=== PATIENT | male | born 1950 | race Caucasian/White ===

== ENCOUNTER 2021-05-17 15:45 | Outpatient (REF) | payer MEDICARE, OTHER, SELFPAY ==
--- NOTE | ~2021-05-17 | XR_ITS ---
EXAMINATION: XR CHEST CLINICAL INFORMATION: Chronic cough COMPARISON: None TECHNIQUE: 2 views of the chest were obtained. FINDINGS: The cardiac and mediastinal contours are normal. The lungs are clear. There is no pleural effusion or pneumothorax. There are degenerative changes of the spine. XR/XR chest 2V IMPRESSION: No evidence for acute disease in the chest.
== END 2021-05-17 15:46 | disposition home or self-care (01) ==
LOC: HO.XRAY 15:45
PROVIDERS: PCP Internal Medicine; Visit Provider Physician Assistant
DX: R05.3 Chronic cough (principal)
CPT/HCPCS: 71046

== ENCOUNTER 2021-06-25 13:58 | Outpatient (REF) | payer MEDICARE, OTHER, SELFPAY ==
--- NOTE | ~2021-06-25 | CT_ITS ---
EXAMINATION: CT CHEST WITHOUT CONTRAST CLINICAL INFORMATION: Chronic cough. COMPARISON: None TECHNIQUE: Multidetector volumetric CT imaging of the chest was done. Axial MIP volume rendering provided. Sagittal and coronal reformatted images were obtained. This CT examination was performed using dose optimization techniques as appropriate, variously including the following: *Automated exposure control *Adjustment of mA and/or kV according to patient size (this includes techniques or standardized protocols for targeted exams where dose is matched to indication/reason for exam; i.e. extremities or head) *Use of iterative reconstruction technique DLP: 194 mGy-cm FINDINGS: SENIOR ENERGY ANALYST: Unremarkable. LUNGS: The lungs are well inflated with focal patchy opacity left upper lobe consistent of bronchiectasis and reticular thickening approximately measuring 4.5 x 1.6 cm on axial image 38/10. Rest of lungs are well-expanded without any evidence of consolidation, mass, pulmonary nodule or groundglass density. MEDIASTINUM: The thyroid lobes are symmetrical and normal. The central trachea and the bronchi are widely patent. Heart size and the great vessels are normal caliber. There are small shotty pretracheal and subcarinal lymph nodes. Moderate coronary artery calcifications present. There is no pericardial effusion. PLEURA: Small focal pleural calcifications seen in the right lung on axial image 17/8, 14/8 and left lung image 54/10. AXILLA: No abnormal lymph nodes in the axilla. The chest wall is unremarkable. UPPER ABDOMEN: Visualized liver, spleen and bilateral adrenal glands unremarkable. There is dense calcification at the tail of the pancreas likely old inflammatory changes. The head and the body of the pancreas is unremarkable. No radiopaque gallstone seen. There is diffuse colonic diverticulosis. OSSEOUS STRUCTURES: There is moderate ventral spondylosis mid and lower dorsal spine. No lytic or sclerotic process seen. CT/CT chest wo con IMPRESSION: Focal bronchiectasis with reticular thickening left upper lobe from small airway inflammatory changes likely chronic. There is no acute consolidation, mass or nodule seen. No abnormal mediastinal or axillary lymphadenopathy seen. Punctate pleural calcification seen in both lungs likely from previous asbestosis exposure. Fleischner guidelines were followed.
== END 2021-06-25 13:59 | disposition home or self-care (01) ==
LOC: HO.CT 13:58
PROVIDERS: PCP Internal Medicine; Visit Provider Physician Assistant
DX: R05.3 Chronic cough (principal)
CPT/HCPCS: 71250

== ENCOUNTER 2022-01-10 14:33 | Outpatient (REF) | payer MEDICARE, OTHER, SELFPAY ==
[2022-01-10 17:50] LABS: MANUAL DIFF FLAG NO
[2022-01-10 17:57] LABS: Basophils Percent Auto 0.6 % (0-2); Eosinophils Absolute Auto 0.1 X10*3/uL (0.0-0.4); Eosinophils Percent Auto 2.6 % (0-4); Hematocrit 40.4 % (42.0-52.0); Hemoglobin 13.8 g/dl (14.0-18.0); Imm Gran Abs Auto 0.01 X10*3/uL (0.00-0.03); Imm Gran Pct Auto 0.2 % (0.0-0.4); Lymphocytes Absolute Auto 1.6 X10*3/uL (1.2-4.9); Lymphocytes Percent Auto 29.5 % (20-40); Mean Corpuscular HGB Conc 34.2 g/dl (31.0-36.0); Mean Corpuscular Hemoglobin 33.6 pg (27.0-33.0); Mean Corpuscular Volume 98.3 fL (80.0-98.0); Mean Platelet Volume 10.8 fL (9.4-12.4); Monocytes Absolute Auto 0.5 X10*3/uL (0.1-1.2); Monocytes Percent Auto 9.8 % (2-11); Neutrophils Absolute Auto 3.1 x10*3/uL (2.0-8.3); Neutrophils Percent Auto 57.3 % (45-73); Platelet Count 208 X10*3/uL (160-400); Red Blood Count 4.11 X10*6/uL (4.60-5.80); Red Cell Distribution Width 12.8 % (11.0-16.0); White Blood Count 5.4 X10*3/uL (4.8-10.8)
[2022-01-10 18:06] LABS: Estimated Average Glucose 100 mg/dL; Hemoglobin A1c % 5.1 %
[2022-01-10 18:08] LABS: Alanine Aminotransferase 23 U/L (0-40); Albumin Level 4.3 g/dL (3.5-5.0); Alkaline Phosphatase 94 U/L (39-117); Anion Gap 15 (12-20); Aspartate Amino Transferase 24 U/L (5-37); Bilirubin Total 0.8 mg/dL (0.0-1.0); Blood Urea Nitrogen 11 mg/dL (9-16); Calcium 9.4 mg/dL (8.4-10.2); Carbon Dioxide 26 mmol/L (22-29); Chloride 103 mmol/L (96-108); Cholesterol 167 mg/dL; Estimated Glomerular Filt Rate > 60; Glucose Random 85 mg/dL (60-115); HDL Cholesterol 64 mg/dL; LDL Cholesterol Calculated 86 mg/dl; Potassium 3.9 mmol/L (3.3-5.1); Sodium 140 mmol/L (135-145); Total Protein 7.1 g/dL (6.5-8.0); Triglycerides 86 mg/dL
[2022-01-10 18:29] LABS: Prostate Specific Antigen 0.19 ng/mL (<0.05-4.0)
== END 2022-01-10 14:34 | disposition home or self-care (01) ==
LOC: HO.MANLDS 14:33
PROVIDERS: Visit Provider Internal Medicine
DX: I10 Essential (primary) hypertension (principal); Z12.5 Encounter for screening for malignant neoplasm of prostate
CPT/HCPCS: 36415; 80053; 80061; 83036; 84153; 85025

== ENCOUNTER 2022-07-05 09:58 | Outpatient (REF) | payer MEDICARE, OTHER, SELFPAY ==
[2022-07-05 11:54] LABS: Basophils Percent Auto 0.6 % (0-2); Eosinophils Absolute Auto 0.2 X10*3/uL (0.0-0.4); Eosinophils Percent Auto 4.2 % (0-4); Hematocrit 39.3 % (42.0-52.0); Hemoglobin 13.5 g/dl (14.0-18.0); Imm Gran Abs Auto 0.01 X10*3/uL (0.00-0.03); Imm Gran Pct Auto 0.2 % (0.0-0.4); Lymphocytes Absolute Auto 1.6 X10*3/uL (1.2-4.9); Lymphocytes Percent Auto 33.1 % (20-40); MANUAL DIFF FLAG SCAN; Mean Corpuscular HGB Conc 34.4 g/dl (31.0-36.0); Mean Corpuscular Hemoglobin 33.3 pg (27.0-33.0); Monocytes Absolute Auto 0.6 X10*3/uL (0.1-1.2); Monocytes Percent Auto 12.9 % (2-11); Neutrophils Absolute Auto 2.4 x10*3/uL (2.0-8.3); PLT CLUMP 1; Red Blood Count 4.05 X10*6/uL (4.60-5.80); Red Cell Distribution Width 12.4 % (11.0-16.0); SCAN SMEAR FLAG 1
[2022-07-05 12:11] LABS: Estimated Average Glucose 108 mg/dL; Hemoglobin A1c % 5.4 %
[2022-07-05 12:35] LABS: White Blood Count 4.8 X10*3/uL (4.8-10.8)
[2022-07-05 12:36] LABS: SLIDE REVIEW VERIFIED
[2022-07-05 13:01] LABS: Alanine Aminotransferase 37 U/L (0-40); Albumin Level 3.7 g/dL (3.5-5.0); Alkaline Phosphatase 87 U/L (39-117); Anion Gap 10 (12-20); Aspartate Amino Transferase 39 U/L (5-37); Bilirubin Total 0.7 mg/dL (0.0-1.0); Blood Urea Nitrogen 13 mg/dL (9-16); Calcium 8.9 mg/dL (8.4-10.2); Carbon Dioxide 29 mmol/L (22-29); Chloride 104 mmol/L (96-108); Cholesterol 109 mg/dL; Estimated Glomerular Filt Rate > 60; Glucose Random 96 mg/dL (60-115); HDL Cholesterol 36 mg/dL; LDL Cholesterol Calculated 49 mg/dl; Potassium 4.4 mmol/L (3.3-5.1); Sodium 139 mmol/L (135-145); Total Protein 6.9 g/dL (6.5-8.0); Triglycerides 122 mg/dL
[2022-07-05 13:03] LABS: Prostate Specific Antigen 0.23 ng/mL (<0.05-4.0)
== END 2022-07-05 09:59 | disposition home or self-care (01) ==
LOC: HO.MANLDS 09:58
PROVIDERS: Visit Provider Internal Medicine
DX: I10 Essential (primary) hypertension (principal); Z12.5 Encounter for screening for malignant neoplasm of prostate; R73.01 Impaired fasting glucose
CPT/HCPCS: 36415; 80053; 80061; 83036; 84153; 85025

== ENCOUNTER 2022-07-06 14:04 | Outpatient (REF) | payer MEDICARE, OTHER, SELFPAY ==
[2022-07-14 10:04] LABS: Babesia IgG <1:64 titer (<1:64); Babesia IgM <1:20 titer (<1:20)
[2022-07-14 13:08] LABS: A. Phagocytophilum Ab IgG <1:64 (<1:64); A. Phagocytophilum Ab IgM <1:20 (<1:20); E. Chaffeensis Ab IgG <1:64 (<1:64); E. Chaffeensis Ab IgM <1:20 (<1:20)
== END 2022-07-06 14:05 | disposition home or self-care (01) ==
LOC: HO.MANLDS 14:04
PROVIDERS: Visit Provider Internal Medicine
DX: S00.9 Superficial injury of unspecified part of head (principal); W57.XXXD Bitten or stung by nonvenomous insect and other nonvenomous arthropods, subsequent encounter
CPT/HCPCS: 86666; 86753

== ENCOUNTER 2023-01-13 09:30 | Outpatient (REF) | payer MEDICARE, OTHER, SELFPAY ==
[2023-01-13 16:14] LABS: Estimated Average Glucose 91 mg/dL; Hemoglobin A1c % 4.8 % (<6.0)
== END 2023-01-13 09:31 | disposition home or self-care (01) ==
LOC: HO.MANLDS 09:30
PROVIDERS: Visit Provider Internal Medicine
DX: E11.9 Type 2 diabetes mellitus without complications (principal)
CPT/HCPCS: 36415; 83036

== ENCOUNTER 2023-03-22 16:06 | Outpatient (REF) | payer MEDICARE, OTHER, SELFPAY ==
--- NOTE | ~2023-03-22 | XR_ITS ---
EXAMINATION: XR CHEST CLINICAL INFORMATION: Cough COMPARISON: Chest 05/17/2021 TECHNIQUE: 2 views of the chest were obtained. FINDINGS: No significant abnormality is noted involving the heart, lungs, mediastinum or soft tissues. Multilevel degenerative changes involve the thoracic spine. XR/XR chest 2V IMPRESSION: No acute cardiopulmonary disease.
== END 2023-03-22 16:07 | disposition home or self-care (01) ==
LOC: HO.XRAY 16:06
PROVIDERS: PCP Internal Medicine; Visit Provider Internal Medicine
DX: R05.9 Cough, unspecified (principal)
CPT/HCPCS: 71046

== ENCOUNTER 2023-08-28 09:27 | Outpatient (REF) | payer MEDICARE, OTHER, SELFPAY ==
[2023-08-28 14:04] LABS: Estimated Average Glucose 103 mg/dL; Hemoglobin A1c % 5.2 % (<6.0)
== END 2023-08-28 09:28 | disposition home or self-care (01) ==
LOC: HO.MANLDS 09:27
PROVIDERS: Visit Provider Internal Medicine
DX: E11.9 Type 2 diabetes mellitus without complications (principal)
CPT/HCPCS: 36415; 83036

== ENCOUNTER 2024-05-24 15:30 | Outpatient (REF) | payer MEDICARE, OTHER, SELFPAY ==
--- NOTE | ~2024-05-24 | XR_ITS ---
EXAMINATION: XR CHEST CLINICAL INFORMATION: pneumonia COMPARISON: March 22, 2023. TECHNIQUE: 2 views of the chest were obtained. FINDINGS: No consolidation, pleural effusion or pneumothorax. Cardiomediastinal silhouette size is normal. Multilevel moderate to severe thoracolumbar spondylosis. Degenerative changes in the right shoulder. XR/XR chest 2V IMPRESSION: No acute airspace disease. Spondylosis, thoracolumbar spine. Electronically signed by: Daniel Daniel MD 05/24/2024 03:57 PM EDT
== END 2024-05-24 15:31 | disposition home or self-care (01) ==
LOC: HO.XRAY 15:30
PROVIDERS: PCP Internal Medicine; Visit Provider Physician Assistant
DX: J18.9 Pneumonia, unspecified organism (principal)
CPT/HCPCS: 71046

== ENCOUNTER → 2024-05-24 15:42 | Outpatient (BNV) | payer MEDICARE, OTHER, SELFPAY | PROVIDERS: PCP Internal Medicine; Visit Provider Radiology Diagnostic Radiology | DX: J18.9 Pneumonia, unspecified organism (principal) | CPT/HCPCS: 71046 ==

== ENCOUNTER 2024-09-14 19:28 | Outpatient (REF) | payer MEDICARE, OTHER, SELFPAY ==
--- NOTE | ~2024-09-14 | MR_ITS ---
CLINICAL HISTORY: sclerotic lesion of prox tibial metaphysis MR right knee with and without contrast Comparison: None available Findings: There is a tear of the posterior horn and posterior root of the medial meniscus. There is a tear of anterior root, anterior horn and anterior aspect of the body of the lateral meniscus. Tear of the anterior cruciate ligament. The posterior cruciate ligament is increased in size and signal without complete discontinuity. The medial and lateral collateral ligaments are intact. There is edema in the posterolateral corner. The extensor mechanism is intact. Mild amount of increased signal in the patellar tendon at its insertion upon the tibial tuberosity. Moderate-sized joint effusion with protrusion posteriorly at the lateral aspect. There is synovial thickening and enhancement. There are intra-articular fragments. Large Goncalves's cys measuring 2.5 x 2.6 x 7.7 cm which contains debris/intra-articular fragments. There is edema within the subcutaneous fat. There is increased signal within the medial gastrocnemius tendon at its insertion. There is also increased signal within the adjacent gastrocnemius muscle on the T2 weighted images with enhancement on the postcontrast images. There is a lesion in the proximal tibial metaphysis measuring 2.0 x 1.6 x 1.8 cm. There is an irregular well-defined margin. It is within the medullary cavity. It is decreased in signal on the T1 weighted images. There is increased signal centrally on the T2 weighted images with peripheral decreased signal. On the postcontrast images there is peripheral enhancement. There is bone marrow edema and enhancement within the distal femur which is most prominent in the lateral femoral condyle and within the medial and lateral tibial plateaus, greatest along the lateral tibial plateau. There is [id number] tricompartmental osteophytosis. Focal full-thickness chondromalacia in the patellofemoral compartment measures up to 7 mm along lateral patellar facet. Full-thickness chondromalacia in medial tibiofemoral compartment measures up to 2.3 cm along the medial femoral condyle. There is full-thickness chondromalacia in the lateral tibiofemoral compartment measuring up to 9 mm along the lateral tibial plateau. Impression: Lesion in the proximal tibial metaphysis measuring up to 2.0 cm is favored to be a bone infarction. If the prior radiographs are submitted for review an addendum can be provided. Consider follow up radiographs to document stability. Tear of the menisci . Complete tear of the anterior cruciate ligament. Edema in the posterolateral corner. The posterior cruciate ligament is increased in size and signal without complete discontinuity which may indicate partial tear. Mild patellar tendinopathy. Moderate-sized joint effusion with synovitis and intra-articular fragments. Large Goncalves's cyst with synovitis and debris/intra-articular fragments. Partial tear of the medial gastrocnemius tendon with associated myositis/tear of the myotendinous junction. Bone marrow edema in the distal femur and proximal tibia, degenerative. [id number] tricompartmental osteophytosis. Tricompartmental full-thickness chondromalacia, detailed above. This document has been electronically signed by: Usha Rojas MD on 09/17/2024 17:30:28
--- OUTSIDE RECORDS SUMMARY | 2024-09-14 19:30 | XMS_ITS | Clinical Summary ---
Author Organization [facility] Address [address] [place] [id number] Phone Care Team Providers Care Meter Repairer Name Role Phone Travis Alvarenga DO Unavailable Bill Perkins MD Unavailable [email or web address] Travis Alvarenga DO Primary Care Provider [phone] Allergies Active Allergy Reactions Criticality Noted Date Comments Adhesive Tape-Silicones 08/09/2018 Other 05/15/2017 Plastic Band-Aid cause rash Medications felodipine (PLENDIL) 2.5 MG 24 hr tablet Take 1 tablet by mouth daily. Active allopurinol (ZYLOPRIM) 300 MG tablet Take 1 tablet by mouth daily. Active fluocinonide 0.05 % cream as needed. 02/09/20 10 Active montelukast (SINGULAIR) 10 mg tablet Take 1 tablet by mouth daily. Active albuterol (PROAIR HFA) 90 mcg/actuation inhaler Inhale 2 puffs into the lungs every 4 (four) hours as needed. 02/11/20 10 Active SUMAtriptan (IMITREX) 100 MG tablet 100 mg daily as needed. Active therapeutic multivitamin tablet Take 1 tablet by mouth daily. With Vitamin D (1000 units) Active albuterol (ACCUNEB) 0.63 mg/3 mL nebulizer solution albuterol sulfate 0.63 mg/3 mL solution for nebulization INHALE 2.5 MG EVERY 3-4 HOURS BY INHALATION ROUTE NEEDED FOR 7 DAYS. Active traMADoL (ULTRAM) 50 mg tablet Take 1 tablet by mouth 2 (two) times a day. 06/14/19 Active tamsulosin (FLOMAX) 0.4 mg Cap tamsulosin 0.4 mg capsule TAKE 1 CAPSULE BY MOUTH EVERY DAY Active guaiFENesin-code ine (ROBITUSSIN AC) 100-10 mg/5 mL liquid TAKE 10 ML NEEDED BY ORAL ROUTE AT BEDTIME FOR 7 DAYS. Active TRELEGY ELLIPTA 200-62.5-25 mcg inhaler Inhale 1 puff into the lungs daily. 08/23/19 Active fluticasone propion-salmeter oL (ADVAIR DISKUS) 500-50 mcg/dose DISKUS Advair Diskus 500 mcg-50 mcg/dose powder for inhalation INHALE 1 PUFF TWICE A DAY BY INHALATION ROUTE FOR 30 DAYS. Discontin ued(No longer taking) atorvastatin (LIPITOR) 40 MG tablet Take 1 tablet by mouth daily. 025 Discontin ued(No longer taking) budesonide-formo terol 160-4.5 mcg/actuation inhaler TAKE 1 PUFF BY MOUTH TWICE A DAY 025 Discontin ued(No longer taking) Active Problems Problem Noted Date Diagnosed Date Overweight (BMI 25.0-29.9) 09/02/2024 Assessment & Plan (09/02/2024 2:48 PM EDT): Congrats on losing 6 llbs from 189 on 03/06/2024 down to 183 today & keep it off. Portion control. Limit concentrated sugars, saturated fats and calories in the diet. Keep well-hydrated. If unable to achieve expected goal consider formal dietary/nutritional support. Strain of right knee 08/19/2024 On allopurinol therapy 03/06/2024 Assessment & Plan (09/02/2024 2:46 PM EDT): Continue as prescribed. Monitor for abd. Pain, nausea, skin rashes, unusual fatigue etc. Get monitoring labs on the way out of the office & in 6 mths- orders [facility]. Assessment & Plan (03/06/2024 1:26 PM EST): Continue as prescribed. Monitor for abd. Pain, nausea, skin rashes, unusual fatigue etc. Get monitoring labs on the way out of the office & in 6 mths- orders [facility]. Primary osteoarthritis involving multiple joints 03/27/2023 Assessment & Plan (09/02/2024 2:46 PM EDT): Joint protection, energy conservation. Gentle, regular exercise routine. Avoid falls, injuries, overuse. Keep body weight in ideal range for his height. He may benefit from topical cream such as Arnica, Biofreeze, Aspercreme versus medicated patches such as salonpas, icy hot patch 2-3 times daily and if necessary at bedtime x 3 weeks. Assessment & Plan (03/06/2024 1:23 PM EST): Joint protection, energy conservation. Gentle, regular exercise routine. Avoid falls, injuries, overuse. Keep body weight in ideal range for his height. He may benefit from topical cream such as Arnica, Biofreeze, Aspercreme versus medicated patches such as salonpas, icy hot patch 2-3 times daily and if necessary at bedtime x 3 weeks. On his request I have agreed to IM Kenalog injection that worked wonderfully since June 2023. Procedure: After an informed written consent, under sterile conditions using Ethyl chloride spray for local anesthesia I have injected 60 mg Kenalog into Left deltoid muscle uneventfully. Details of post-procedure care were explained to the patient in the office and given in writing. Provider: Sara Casey MD Patient: Nicolas Smiley : 1950 Date: 03/06/2024 Assessment & Plan (06/28/2023 9:39 AM EDT): Degenerative osteoarthritis in multiple joints with no swelling. He has pain over multiple CMC joints as well as cervical and lumbar spine pain. I gave her an intramuscular injection of triamcinolone 60 mg to relieve his pain and stiffness, which should last him several months. Continue with Tylenol and tramadol as needed. Assessment & Plan (03/27/2023 1:52 PM EST): Osteoarthritis in multiple joints with minimal stiffness and no swelling. The ring finger triggers resolved after injection at last visit. He can continue with Tylenol and tramadol as needed. He can return to rheumatology if the triggering recurs. Encounter for medication monitoring 10/13/2022 Assessment & Plan (10/13/2022 3:22 PM EDT): Surveillance labs to be checked Trigger ring finger of left hand 10/13/2022 Assessment & Plan (10/13/2022 3:24 PM EDT): Trigger finger of left hand injected with triamcinolone 30 mg. Arthritis of finger of right hand 10/18/2021 Assessment & Plan (10/18/2021 11:01 AM EDT): Procedure: After an informed oral consent, under sterile conditions using Ethyl chloride spray for local anesthesia I have injected 20 mg DepoMedrol and 0.5 cc 1% Lidocaine into Right 3rd MCP joint uneventfully. Details of post-procedure care were explained to the patient in the office and given in writing. Provider: Sara Casey MD Patient: Nicolas Smiley : 1950 Date: 10/18/2021 Vitamin D insufficiency 10/18/2021 Assessment & Plan (10/18/2021 11:04 AM EDT): Re-start vit 1000 units every other day from 11/11/2021 till 05/27/2022 Idiopathic chronic gout of multiple sites alfredo fagan 10/12/2021 Overview (10/12/2021): Gout controlled on Allopurinol 300 mg daily Uric acid low normal Will repeat labs today, consider reducing dose of allopurinol Assessment & Plan (09/02/2024 2:55 PM EDT): Clinically stable-no gouty attack for several years per his report on current allopurinol 300 mg daily New set of lab work requested today. Continue proper hydration and low purine diet. Call if problems or questions otherwise return as scheduled in 6 mths Assessment & Plan (03/06/2024 1:24 PM EST): Uric acid 3.2 (<6.0) from 10/12/2021 on daily allopurinol 300 mg & no gouty attacks per his report > 5 years-decrease allopurinol from 300 mg daily to alternating with 150 mg every other day. Continue proper hydration and low purine diet. Call if problems or questions otherwise return as scheduled in 6 mths Assessment & Plan (03/27/2023 1:52 PM EST): Chronic gout well-controlled on allopurinol 300 mg daily. His last uric acid was 2.8. Continue with same dose of allopurinol. Assessment & Plan (10/13/2022 3:23 PM EDT): Gout well-controlled on daily allopurinol 300 mg. Assessment & Plan (11/09/2021 1:48 PM EDT): Uric acid 3.2 (<6.0) from 10/12/2021 on daily allopurinol 300 mg & no gouty attacks per his report > 5 years-decrease allopurinol from 300 mg daily to alternating with 150 mg every other day. Continue proper hydration and low purine diet. Call if problems or questions otherwise return as scheduled in March 2022 Assessment & Plan (10/12/2021 9:41 AM EDT): Gout controlled on Allopurinol 300 mg daily Uric acid low normal Will repeat labs today, consider reducing dose of allopurinol High serum calcium 10/12/2021 Overview (10/12/2021): High Calcium level on labs in 06/18, most likely from taking extra Tums but will check vit D and PTH/ Pt to avoid extra Calcium supplementation Assessment & Plan (10/12/2021 9:43 AM EDT): High Calcium level on labs in 06/18, most likely from taking extra Tums but will check vit D and PTH/ Pt to avoid extra Calcium supplementation Acquired trigger finger of right middle finger 0 09/28/2020 Assessment & Plan (09/28/2020 2:18 PM EDT): Acute flareup secondary to osteoarthritis of the third MCP joint will be treated with relative rest, continuance of Naprosyn 500 g daily as needed and local injection today into the right third trigger finger. Spinal enthesopathy of cervical region Assessment & Plan (03/10/2020 2:43 PM EST): Acute left-sided flare without radiculopathy or myelopathy will be treated with local injection therapy today followed by cervical pillow relative rest and contrast baths. He will continue naproxen sodium as needed. Low back pain 09/09/2019 Assessment & Plan (09/09/2019 3:28 PM EDT): This is likely overuse but he may have some osteoarthritis in the facet joints. Certainly there are no signs of neurogenic claudication or radiculopathy. He will use warmth, good techniques at lifting, naproxen and a sacral support brace. Left knee pain 08/09/2018 Assessment & Plan (08/09/2018 10:26 AM EDT): Acute left knee pain now resolving. No evidence of synovitis or instability. Plical syndrome, meniscal contusion, small meniscal tear all possible. Obtain x-rays today. Get back to him by phone call. Monitor activity and symptoms and if worse then MRI to rule out internal derangement. Asthma 10/26/2017 Rotator cuff impingement syndrome 05/15/2017 Assessment & Plan (05/15/2017 2:43 PM EDT): After surgical repair he is now asymptomatic without impingement. He is sleeping well. He has no difficulty with ADLs or doing any hard work over his head. His exam today is normal. Hyperlipidemia 05/15/2017 Assessment & Plan (05/15/2017 2:45 PM EDT): Patient is now on 40 mg of simvastatin a day. He denies any myalgias or muscle cramps. 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 He has had no acute cardiovascular events. We discussed the risks and benefits of long-term use of simvastatin. He will follow directions as laid out to him by his primary care physician. Laboratory was reviewed from February showing a C-reactive protein of 0.1 with a uric acid of 3.4 and normal liver enzymes. Idiopathic chronic gout of right hand 01/11/2017 Assessment & Plan (06/24/2020 2:10 PM EDT): Patient has a history of stable gout on allopurinol 300 mg daily with uric acid levels in the serum being in the target range below 6.0 and no recent flares of gout. His osteoarthritic pain will continue to be treated with tramadol on an as- needed basis. We will continue with 300 mg of allopurinol daily. His most recent laboratory work was checked. No visits with results within 3 Month(s) from this visit. Latest known visit with results is: Hospital Outpatient Visit on 11/07/2019 Component Date Value Ref Range Status PSA 11/07/2019 0.40 0 - 4.00 ng/mL Final HDL 11/07/2019 55 mg/dL Final Comment: Interpretation <40 mg/dL: Low HDL cholesterol (major risk factor for CHD) Greater than or equal to 60 mg/dL: High HDL cholesterol ( negative risk factor for CHD) HDL - cholesterol is affected by a number of factors, e.g. smoking, excerise, hormones, sex and age. CHOLESTEROL 11/07/2019 128 0 - 240 mg/dL Final TRIGLYCERIDES 11/07/2019 100 30 - 160 mg/dL Final LDL 11/07/2019 53 50 - 129 mg/dL Final Comment: LDL levels in terms of risk for coronary heart disease: <100 mg/dL: Optimal 100-129 mg/dL: Near or above optimal 130-159 mg/dL: Borderline high 160-189 mg/dL: High >190 mg/dL: Very High CARDIAC RISK RATIO 11/07/2019 2.3* 3.4 - 5.0 Final WBC 11/07/2019 4.88 4.00 - 11.00 K/uL Final Note Reference Range updates to all CBC and Differential results. RBC 11/07/2019 4.05 3.90 - 5.69 M/uL Final HGB 11/07/2019 13.6 12.4 - 17.3 g/dL Final Note updated Reference Ranges for all CBC and Differential results. HCT 11/07/2019 38.3 37.0 - 51.0 % Final PLT 11/07/2019 189 140 - 430 K/uL Final MCV 11/07/2019 94.6 78.0 - 97.0 fL Final MCH 11/07/2019 33.6* 25.0 - 33.0 pg Final MCHC 11/07/2019 35.5 32.0 - 36.0 g/dL Final RDW 11/07/2019 12.6 11.0 - 15.0 % Final MPV 11/07/2019 10.8 8.4 - 12.8 fl Final NRBC 11/07/2019 0.00 0 /100 WBCs Final ABSOLUTE NRBC 11/07/2019 0.00 0 K/uL Final SODIUM 11/07/2019 141 133 - 146 mmol/L Final POTASSIUM 11/07/2019 4.2 3.3 - 5.1 mmol/L Final CHLORIDE 11/07/2019 105 96 - 108 mmol/L Final CO2 11/07/2019 25 21 - 35 mmol/L Final BUN 11/07/2019 11 6 - 19 mg/dL Final CREATININE 11/07/2019 0.70 0.5 - 1.5 mg/dL Final GLUCOSE 11/07/2019 97 70 - 99 mg/dL Final ALBUMIN 11/07/2019 4.3 3.9 - 4.8 g/dL Final TOTAL PROTEIN 11/07/2019 7.0 6.5 - 8.0 g/dL Final CALCIUM 11/07/2019 9.0 8.4 - 10.3 mg/dL Final ALKALINE PHOSPHATASE 11/07/2019 85 39 - 117 U/L Final TOTAL BILIRUBIN 11/07/2019 0.4 0.0 - 1.2 mg/dL Final AST 11/07/2019 30 0 - 37 U/L Final ALT 11/07/2019 23 0 - 40 U/L Final GLOBULIN 11/07/2019 2.7 1 - 4.8 g/dL Final EGFR 11/07/2019 98 >59 mL/min/1.73m2 Final Estimated glomerular filtration rate calculated using the CKD-EPI equation. ANION GAP 11/07/2019 15 10 - 20 mmol/L Final 25 OH VIT D (TOTAL) 11/07/2019 35 30 - 60 ng/mL Final HEMOGLOBIN A1C 11/07/2019 5.6 4.3 - 5.8 % Final Assessment & Plan (03/10/2020 2:44 PM EST): Gouty arthritis particular involving the right third MCP joint we have treated with enlarged strap cutter and tools and utensils, continued use of allopurinol, continued use of naproxen 500 g daily as needed an intra-articular corticosteroid today. Continue allopurinol at current dose. He has been within the target range of uric acid for quite some time now. No evidence of nephrolithiasis. No visits with results within 3 Month(s) from this visit. Latest known visit with results is: Hospital Outpatient Visit on 11/07/2019 Component Date Value Ref Range Status PSA 11/07/2019 0.40 0 - 4.00 ng/mL Final HDL 11/07/2019 55 mg/dL Final Comment: Interpretation <40 mg/dL: Low HDL cholesterol (major risk factor for CHD) Greater than or equal to 60 mg/dL: High HDL cholesterol ( negative risk factor for CHD) HDL - cholesterol is affected by a number of factors, e.g. smoking, excerise, hormones, sex and age. CHOLESTEROL 11/07/2019 128 0 - 240 mg/dL Final TRIGLYCERIDES 11/07/2019 100 30 - 160 mg/dL Final LDL 11/07/2019 53 50 - 129 mg/dL Final Comment: LDL levels in terms of risk for coronary heart disease: <100 mg/dL: Optimal 100-129 mg/dL: Near or above optimal 130-159 mg/dL: Borderline high 160-189 mg/dL: High >190 mg/dL: Very High CARDIAC RISK RATIO 11/07/2019 2.3* 3.4 - 5.0 Final WBC 11/07/2019 4.88 4.00 - 11.00 K/uL Final Note Reference Range updates to all CBC and Differential results. RBC 11/07/2019 4.05 3.90 - 5.69 M/uL Final HGB 11/07/2019 13.6 12.4 - 17.3 g/dL Final Note updated Reference Ranges for all CBC and Differential results. HCT 11/07/2019 38.3 37.0 - 51.0 % Final PLT 11/07/2019 189 140 - 430 K/uL Final MCV 11/07/2019 94.6 78.0 - 97.0 fL Final MCH 11/07/2019 33.6* 25.0 - 33.0 pg Final MCHC 11/07/2019 35.5 32.0 - 36.0 g/dL Final RDW 11/07/2019 12.6 11.0 - 15.0 % Final MPV 11/07/2019 10.8 8.4 - 12.8 fl Final NRBC 11/07/2019 0.00 0 /100 WBCs Final ABSOLUTE NRBC 11/07/2019 0.00 0 K/uL Final SODIUM 11/07/2019 141 133 - 146 mmol/L Final POTASSIUM 11/07/2019 4.2 3.3 - 5.1 mmol/L Final CHLORIDE 11/07/2019 105 96 - 108 mmol/L Final CO2 11/07/2019 25 21 - 35 mmol/L Final BUN 11/07/2019 11 6 - 19 mg/dL Final CREATININE 11/07/2019 0.70 0.5 - 1.5 mg/dL Final GLUCOSE 11/07/2019 97 70 - 99 mg/dL Final ALBUMIN 11/07/2019 4.3 3.9 - 4.8 g/dL Final TOTAL PROTEIN 11/07/2019 7.0 6.5 - 8.0 g/dL Final CALCIUM 11/07/2019 9.0 8.4 - 10.3 mg/dL Final ALKALINE PHOSPHATASE 11/07/2019 85 39 - 117 U/L Final TOTAL BILIRUBIN 11/07/2019 0.4 0.0 - 1.2 mg/dL Final AST 11/07/2019 30 0 - 37 U/L Final ALT 11/07/2019 23 0 - 40 U/L Final GLOBULIN 11/07/2019 2.7 1 - 4.8 g/dL Final EGFR 11/07/2019 98 >59 mL/min/1.73m2 Final Estimated glomerular filtration rate calculated using the CKD-EPI equation. ANION GAP 11/07/2019 15 10 - 20 mmol/L Final 25 OH VIT D (TOTAL) 11/07/2019 35 30 - 60 ng/mL Final HEMOGLOBIN A1C 11/07/2019 5.6 4.3 - 5.8 % Final Assessment & Plan (09/09/2019 3:28 PM EDT): Erosive gouty arthritis but no active gout. His uric acid levels have always been therapeutic. He will remain on allopurinol and continue to be on a low purine diet. He may continue to use tramadol for pain. Assessment & Plan (05/06/2019 3:30 PM EDT): Reviewed previous lab work. Uric acid levels have remained therapeutic. I expect them to remain so. He will remain on 300 mg of allopurinol daily pending my review of lab work and I will call him with the results thereafter. He will remain on a low purine diet. He will receive an injection today into the right third MCP joint which I believe is flaring secondary to osteoarthritis and possibly gout as well. Assessment & Plan (01/11/2017 2:28 PM EST): The right third MCP joint has chronic gouty involvement and secondary osteoarthritis. About 5 months ago a cortisone injection was given with excellent relief from pain stiffness and swelling in will be done again today at his request. Diplopia 01/11/2017 Assessment & Plan (01/11/2017 2:27 PM EST): This is under workup right now with neurology and ophthalmology. He is scheduled for a brain MRI this evening with contrast. 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 His most recent lab work was reviewed. It shows that he has his uric acid of the therapeutic range. He has not had any acute gout attack for many many years. He has had no history of nephrolithiasis. We will continue him on 300 mg of allopurinol daily. No visits with results within 3 Month(s) from this visit. Latest known visit with results is: Hospital Outpatient Visit on 06/24/2020 Component Date Value Ref Range Status SODIUM 06/24/2020 140 133 - 146 mmol/L Final POTASSIUM 06/24/2020 4.3 3.3 - 5.1 mmol/L Final CHLORIDE 06/24/2020 104 96 - 108 mmol/L Final CO2 06/24/2020 28 21 - 35 mmol/L Final BUN 06/24/2020 9 6 - 19 mg/dL Final CREATININE 06/24/2020 0.60 0.5 - 1.5 mg/dL Final GLUCOSE 06/24/2020 124* 70 - 99 mg/dL Final ALBUMIN 06/24/2020 4.0 3.9 - 4.8 g/dL Final TOTAL PROTEIN 06/24/2020 7.0 6.5 - 8.0 g/dL Final CALCIUM 06/24/2020 9.2 8.4 - 10.3 mg/dL Final ALKALINE PHOSPHATASE 06/24/2020 94 39 - 117 U/L Final TOTAL BILIRUBIN 06/24/2020 0.4 0.0 - 1.2 mg/dL Final AST 06/24/2020 30 0 - 37 U/L Final ALT 06/24/2020 24 0 - 40 U/L Final GLOBULIN 06/24/2020 3.0 1 - 4.8 g/dL Final EGFR 06/24/2020 104 >59 mL/min/1.73m2 Final Estimated glomerular filtration rate calculated using the CKD-EPI equation. ANION GAP 06/24/2020 12 10 - 20 mmol/L Final URIC ACID 06/24/2020 2.5 2.4 - 7.0 mg/dL Final Assessment & Plan (08/09/2018 10:25 AM EDT): This has been quiet for quite some time. He will remain on 300 mg of allopurinol daily. He will have lab work checked today. Assessment & Plan (10/26/2017 9:12 AM EDT): Patient is having a flareup of osteoarthritis and gout in the right third MCP joint. He will have an intra-articular corticosteroid injection there. He will continue on 300 mg of allopurinol daily. He will continue on naproxen sodium 500 mg twice a day as needed. I reviewed with him lab work done today showing an AST of 29, ALT 27, calcium 9.3, glucose slightly elevated at 103, uric acid 3.3. Assessment & Plan (05/15/2017 2:44 PM EDT): Long history of gouty arthritis, currently under excellent control. Low purine diet, weight control, and adherence to the use of allopurinol at 300 mg daily. He will stay on this. I requested lab work to be done at the end of June. I'll get back to him on this and discuss any change in dose of the allopurinol. Assessment & Plan (01/11/2017 2:27 PM EST): Stable without flare on allopurinol. Lab work will be done to say so see if he is therapeutic and I will call him with the results but for now he will continue on 300 mg of allopurinol daily and stay on a low purine diet. 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 Fortunately patient does not have a syndrome of radiculopathy or neurogenic claudication and no long track signs but he does have significant pain and limitation in range of motion especially with left lateral bending and rotation. We discussed the natural history of cervical spondylosis. I have referred him to physical therapy. He may call me for any flares requiring trigger point injection therapy and I did recommend a cervical pillow. All of his questions were answered. 50% of 30-minute visit was spent in [id number] conversation discussing the natural history and treatment of his condition, going over necessary lab work and medications and coordinating my care with out of his primary care physician. Encounters Date Type Department Care Team Description 09/02/2024 2:52 PM EDT - 09/02/2024 11:59 PM EDT Hospital Encounter [facility] [place] [address] Sara Casey MD Discharge Disposition: Home or Self Care 09/02/2024 2:30 PM EDT Office Visit [facility] [address] [place] [address] Sara Casey MD Idiopathic chronic gout of multiple sites without tophus (Primary Dx); Primary osteoarthritis involving multiple joints; On allopurinol therapy; Overweight (BMI 25.0-29.9) 08/19/2024 3:35 PM EDT Hospital Encounter [facility] [address] [place] [id number] Jennifer Jean PA-C 08/19/2024 3:20 PM EDT Office Visit [facility] at [address] [address] Belem Russell, PROFESSOR [employer] Jennifer Jean PA-C Strain of right knee, initial encounter (Primary Dx) from Last 3 Months Immunizations Immunization Administration Dates Next Due COVID-19 (Pre-12/19) [employer] Vaccine, [id number], PF 05/18/2020 COVID-19 (Pre-12/19) [employer] Vaccine, mRNA, PF 12/07/2021,06/22/2021 COVID-19 (Pre-12/19) [employer] Vaccine, mRNA, barb-sucrose, PF 06/22/2021 Influenza High-Dose Quadriva lent Preservative Free IM 11/20/2021 Influenza High-Dose Trivalen t Preservative Free IM 2023,10/31/2017 Influenza Quadrivalent Adjuv anted Preservative Free IM 11/25/2022,12/13/2020 Influenza Quadrivalent w/ Pr eservative IM 11/04/2019,11/09/2018,10/31/2017 Influenza Trivalent Adjuvant ed Preservative free IM 11/09/2018 Influenza Trivalent Preserva tive Free IM 11/06/2019,10/30/2016,10/12/2015,10/17 Pneumococcal conjugate PCV13 01/05/2018 Pneumococcal polysaccharide PPSV23 01/09/2019 RSV Vaccine (bivalent) 12/09/2022 Social History Tobacco Use Types Packs/Day Years Used Date Smoking Tobacco: Former Cigarettes Q uit: 1981 Smokeless Tobacco: Never Tobacco Cessation:Counseling Given: Not Answered Alcohol Use Standard Drinks/Week Comments Not Currently 2 (1 standard drink = 0.6 oz pur e alcohol) daily Education Answer Date Recorded Are you interested in more education? Not on yareli e 06/24/2022 Are you concerned about learning? Not on file 06/24/2022 No 06/24/2022 No 06/24/2022 Digital Access Answer Date Recorded No 07/25/2022 No 07/25/2022 Reliable internet access at home? Not on file 07/25/2022 Device with a working camera? Not on file Sex and Gender Information Value Date Recorded Sex Assigned at Not on file Legal Sex Male 9:58 PM EDT Gender Identity Not on file Sexual Orientation Not on file Last Filed Vital Signs Vital Sign Reading Time Taken Comments Blood Pressure 118/66 09/02/2024 2:22 PM EDT Pulse 84 09/02/2024 2:22 PM EDT Temperature 37 C (98.6 F) 08/19/2024 3:24 PM EDT Respiratory Rate 18 08/19/2024 3:24 PM EDT Oxygen Saturation 97% 09/02/2024 2:22 PM EDT Inhaled Oxygen Concentration - - Weight 83 kg (183 lb) 09/02/2024 2:22 PM EDT wit h shoes Height 172.7 cm (5' 7.99 ) 09/02/2024 2:22 PM ED T Body Mass Index 27.83 09/02/2024 2:22 PM EDT Plan of Treatment Upcoming Encounters Date Type Department Care Team (Late st Contact Info) Description 03/03/2025 3:00 PM EST Office Visit [facility] Rheumatology [address] [place] [address] Sara Casey MD [address] [facility], [address] [place] [address] Health Maintenance Due Date Last Done Comments DEPRESSION SCREENING 1962 HEPATITIS C SCREENING 1970 COLOGUARD 1997 COLONOSCOPY 1997 COLORECTAL CANCER SCREENING 1997 FIT TEST 1997 FOBT 1997 SIGMOIDOSCOPY 1997 VIRTUAL COLONOSCOPY 1997 ABDOMINAL AORTIC ANEURYSM (AAA) SCREENING 2017 COVID-19 VACCINE ( season) 2024 12/11/2023, 11/25/2022, 12/07/2021, Additional history exists BLOOD PRESSURE 03/05/2025 09/02/2024 CREATININE LEVEL 09/02/2025 09/02/2024, , 09/19/2022, Additional history exists SMOKING Hx and SMOKELESS TOBACCO SCREENING 09/02/2025 09/02/2024 LIPID PANEL 03/21/2029 03/21/2024, 10/28, 09/28/2010 Adult Td,Tdap Booster 12/10/2030 12/10/2020 ZOSTER VACCINES Completed 01/05/2018, 05/2017, 10/31/2017 PNEUMOCOCCAL VACCINES (50+ years) Completed 01/09/2019, 01/05/2018 RSV VACCINE Completed 12/09/2022 HEPATITIS A VACCINES Aged Out No long er eligible based on patient's age to complete this topic HIB VACCINES Aged Out No longer eligi ble based on patient's age to complete this topic MENINGOCOCCAL VACCINES (ACWY) Aged Out No longer eligible based on patient's age to complete this topic MENINGOCOCCAL VACCINES (B) Aged Out N o longer eligible based on patient's age to complete this topic Medical Devices Not on file Procedures Procedure Name Priority Date/Time Associated Diagnosis Comments COMPREHENSIVE METABOLIC PANEL Routine 09/02/2024 3:04 PM EDT 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 C-REACTIVE PROTEIN Routine 09/02/2024 3: 04 PM EDT 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 SEDIMENTATION RATE (ESR) Routine 09/02/2024 3:04 PM EDT 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 CBC AND DIFFERENTIAL Routine 09/02/2024 3:04 PM EDT 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 URIC ACID Routine 09/02/2024 3:04 PM EDT 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 XR KNEE 4 OR MORE VIEWS (RIGHT) Routine 08/19/2024 3:39 PM EDT Strain of right knee, initial encounter LIPID PANEL Routine 03/21/2024 9:30 AM EST Essential (primary) hypertension from Last 3 Months or Most Recently Relevant to Health Maintenance Results * (ABNORMAL) Comprehensive metabolic panel (09/02/2024 3:04 PM EDT) SODIUM 137 133 - 146 mmol/L [facility] POTASSIUM 4.6 3.3 - 5.1 mmol/L [facility] CHLORIDE 100 96 - 108 mmol/L [facility] CO2 27 21 - 35 mmol/L [facility] BUN 16 6 - 19 mg/dL [facility] CREATININE 0.70 0.5 - 1.5 mg/dL [facility] GLUCOSE 122(H) 70 - 99 mg/dL [facility] ALBUMIN 4.0 3.9 - 4.8 g/dL [facility] TOTAL PROTEIN 6.9 6.5 - 8.0 g/dL [facility] CALCIUM 9.3 8.4 - 10.3 mg/dL [facility] ALKALINE PHOSPHATASE 79 39 - 117 U/L [facility] TOTAL BILIRUBIN 0.6 0.0 - 1.2 mg/dL [facility] AST 21 0 - 37 U/L [facility] ALT 14 0 - 40 U/L [facility] GLOBULIN 2.9 1 - 4.8 g/dL [facility] EGFR 99 >59 mL/min/1.7 3m2 [facility] Comment:Estimated glomerular filtration rate calculated using the CKD-EPI refit equation. ANION GAP 15 10 - 20 mmol/L [facility] Blood 09/02/2024 3:04 PM EDT 09/02/2024 3:06 PM EDT us Sara Casey MD LAB BLOOD ORDERABLES Fin al Result [address] [address] * Sedimentation rate (ESR) (09/02/2024 3:04 PM EDT) ESR 10 0 - 20 mm/h [facility] Blood 09/02/2024 3:04 PM EDT 09/02/2024 3:06 PM EDT us Sara Casey MD LAB BLOOD ORDERABLES Fin al Result [facility] [address] [place] [address] * (ABNORMAL) CBC and differential (09/02/2024 3:04 PM EDT) WBC 7.31 4.00 - 11.00 K/uL [facility] RBC 4.09(L) 4.50 - 5.90 M/uL [facility] HGB 13.9 13.5 - 17.5 g/dL [facility] HCT 41.3 41.0 - 53.0 % [facility] PLT 209 150 - 450 K/uL [facility] MCV 101.0(H) 80.0 - 100.0 fL [facility] MCH 34.0(H) 27.0 - 31.0 pg [facility] MCHC 33.7 32.0 - 36.0 g/dL [facility] RDW 13.5 11.5 - 14.5 % [facility] MPV 11.0 8.4 - 12.0 fL [facility] NRBC 0.00 0.00 /100 WBCs [facility] ABSOLUTE NRBC 0.00 0.00 K/uL [facility] DIFF METHOD Auto [facility] NEUTS 79.2(H) 48.0 - 76.0 % [facility] LYMPHS 13.4(L) 18.0 - 41.0 % [facility] MONOS 6.4 4.0 - 11.0 % [facility] EOS 0.3 0.0 - 5.0 % [facility] BASOS 0.3 0.0 - 1.5 % [facility] Granulocytes, immature (%) 0.4 0.0 - 0.9 % [facility] ABSOLUTE NEUTS 5.79 1.92 - 7.60 K/uL [facility] ABSOLUTE LYMPHS 0.98 0.72 - 4.10 K/uL [facility] ABSOLUTE MONOS 0.47 0.16 - 1.10 K/uL [facility] ABSOLUTE EOS 0.02 0.00 - 0.50 K/uL [facility] ABSOLUTE BASOS 0.02 0.00 - 0.15 K/uL [facility] Granulocytes, immature 0.03 0.00 - 0.09 K/uL [facility] Blood 09/02/2024 3:04 PM EDT 09/02/2024 3:06 PM EDT us Sara Casey MD LAB BLOOD ORDERABLES Fin al Result Performing Organization Address City/[facility]/ZIP Co de Phone Number [address] [address] * C-Reactive Protein (09/02/2024 3:04 PM EDT) C REACTIVE PROTEIN <3.0 0.0 - 4.0 mg/L [facility] Blood 09/02/2024 3:04 PM EDT 09/02/2024 3:06 PM EDT Sara Casey MD LAB BLOOD ORDERABLES Fin al Result Performing Organization Address [facility] Co de Phone Number [address] [address] * Uric acid (09/02/2024 3:04 PM EDT) URIC ACID 3.2 2.4 - 7.0 mg/dL [facility] Blood 09/02/2024 3:04 PM EDT 09/02/2024 3:06 PM EDT Sara Casey MD LAB BLOOD ORDERABLES Fin al Result Performing Organization Address [facility] Co de Phone Number [address] [address] * XR KNEE 4 OR MORE VIEWS (RIGHT) (08/19/2024 3:39 PM EDT) Anatomical Region Laterality Modality Knee Right Computed Radiogr aphy 08/19/2024 3:43 PM EDT Impressions 08/19/2024 3:45 PM EDT No acute fracture or dislocation. Well circumscribed sclerotic lesion in the proximal tibial metaphysis, which may represent a chronic bone infarct or enchondroma. Mild tricompartmental degenerative changes. Chondrocalcinosis in the medial and lateral compartment. Small joint effusion. Small calcifications in the quadriceps tendon, which may represent calcific tendinopathy or sequela from prior trauma. Mild atherosclerotic disease. Narrative 08/19/2024 3:45 PM EDT XR KNEE 4 OR MORE VIEWS (RIGHT) Referring clinician's provided indication for this examination in [facility]: Pain COMPARISON: None. Procedure Note Gordon Darden MD - 08/19/2024 XR KNEE 4 OR MORE VIEWS (RIGHT) Referring clinician's provided indication for this examination in [facility]:Pain COMPARISON: None. IMPRESSION: No acute fracture or dislocation. Well circumscribed sclerotic lesion inthe proximal tibial metaphysis, which may represent a chronic bone infarctor enchondroma. Mild tricompartmental degenerative changes.Chondrocalcinosis in the medial and lateral compartment. Small jointeffusion. Small calcifications in the quadriceps tendon, which mayrepresent calcific tendinopathy or sequela from prior trauma. Mildatherosclerotic disease. Jennifer Jean PA-C IMG XR LOWER EXTREMITY Final Result * (ABNORMAL) Lipid panel (03/21/2024 9:30 AM EST) HDL 64 mg/dL [facility] Comment: Interpretation <40 mg/dL: Low HDL cholesterol (major risk factor for CHD) Greater than or equal to 60 mg/dL: High HDL cholesterol ( negative risk factor for CHD) HDL - cholesterol is affected by a number of factors, e.g. smoking, excerise, hormones, sex and age. CHOLESTEROL 213 0 - 240 mg/dL [facility] TRIGLYCERIDES 164(H) 30 - 160 mg/dL [facility] LDL 116 50 - 129 mg/dL [facility] Comment: LDL levels in terms of risk for coronary heart disease: <100 mg/dL: Optimal 100-129 mg/dL: Near or above optimal 130-159 mg/dL: Borderline high 160-189 mg/dL: High >190 mg/dL: Very High CARDIAC RISK RATIO 3.3(L) 3.4 - 5.0 C [facility] Blood 03/21/2024 9:30 AM EST 03/21/2024 9:34 AM EST us Travis Alvarenga DO LAB BLOOD ORDERABLES Final Resul t [address] [address] from Last 3 Months or Most Recently Relevant to Health Maintenance Insurance MEDICARE PART A & B Member Subscriber Plan / Payer (Ef fective 2017-Present) Name:Nicolas Smiley Member ID:[id number] Relation to Subscriber:Self Name:Nicolas Smiley Subscriber ID:[id number] Payer ID:[id number] Group ID:Not on file Type:Medicare Address: [facility] [employer] [facility].[address] [place] [address] [employer] MEDICARE SUPPLEMENT MEDICARE PART A & B [employer] MEDICARE SUPPLEMENT MEDICARE PART A & B [employer] MEDICARE SUPPLEMENT MEDICARE PART A & B [employer] EXT[employer]ION MEDICARE SUPPLEMENT MEDICARE PART A & B [employer] EXTENSION MEDICARE SUPPLEMENT MEDICARE PART A & B [employer] EXTENSION MEDICARE SUPPLEMENT MEDICARE PART A & B [employer] EXTENSION MEDICARE SUPPLEMENT MEDICARE PART A & B [employer] EXTENSION MEDICARE SUPPLEMENT MED[facility]ARE [facility] A & [facility] [employer] EXTENSION MEDICARE SUPPLEMENT Care Teams Meter Repairer Relationship Specialty Start Date End Date Brandietyra Travis CuevasDO [email or web address] PCP - General Internal Medicine 01/11/17 Travis Alvarenga DO [email or web address] Historical LMR Provider 12/13/16 Bill Perkins MD [email or web address] Historical LMR Provider 12/13/16 Additional Source Comments The information contained in this document represents components of the legal health record. It is not the complete legal health record.[facility]
--- OUTSIDE RECORDS SUMMARY | 2024-09-14 19:30 | XMS_ITS | Clinical Summary ---
Author Organization [employer] [facility] Address [address] [place] [address] [address] [place] [address] Care Team Providers Care Warehouse Order Picker Name Role Phone Unavailable Primary Care Provider Unavailabl e Social History Tobacco Use Types Packs/Day Years Used Date Smoking Tobacco: Never Assessed Sex and Gender Information Value Date Recorded Sex Assigned at Male 12/27/2021 10:23 AM EDT Legal Sex Male 10:23 AM EDT Gender Identity Male 12/27/2021 10:23 AM EDT Sexual Orientation Straight 12/27/2021 10 :23 AM EDT Plan of Treatment Health Maintenance Due Date Last Done Comments CT Colonography 1952 Colonoscopy 1952 Colorectal Cancer Screening 1952 Depression Screening 1952 FIT DNA/Cologuard 1952 FIT 1952 FOBT 1952 Lipid Panel 1952 Sigmoidoscopy 1952 Alcohol/Substance Use Screening 1964 Tobacco Screening 1964 DTaP/Tdap/Td Vaccines (1 - Tdap) 10/10/1971 Pneumococcal Vaccine: 50+ Ye ars (1 of 1 - PCV) 2002 Zoster Vaccines (1 of 2) 2002 COVID-19 Vaccine ( - 2023-2 5 season) 2023 Influenza Vaccine (#1) 2024 RSV Patients and Pa tients Aged 60 years or older (1 - 1-dose 75+ series) 10/10/2027 HIB Vaccines Aged Out No longer eligi ble based on patient's age to complete this topic HPV Vaccines Aged Out No longer eligi ble based on patient's age to complete this topic Hepatitis A Vaccines Aged Out No long er eligible based on patient's age to complete this topic Hepatitis B Vaccines Aged Out No long er eligible based on patient's age to complete this topic IPV Vaccines Aged Out No longer eligi ble based on patient's age to complete this topic Meningococcal B Vaccine Aged Out No l onger eligible based on patient's age to complete this topic Meningococcal Vaccine Aged Out No wesley karen eligible based on patient's age to complete this topic RSV under 20 months Aged Out No longe r eligible based on patient's age to complete this topic Rotavirus Vaccines Aged Out No longer eligible based on patient's age to complete this topic
== END 2024-09-14 19:29 | disposition home or self-care (01) ==
LOC: HO.MRI 19:28
PROVIDERS: PCP Internal Medicine; Visit Provider Internal Medicine
DX: M89.9 Disorder of bone, unspecified (principal)
CPT/HCPCS: 73723; A9585

== ENCOUNTER → 2024-09-14 19:30 | Outpatient (BNV) | payer MEDICARE, OTHER, SELFPAY | PROVIDERS: PCP Internal Medicine; Visit Provider Radiology Diagnostic Radiology | DX: M65.161 Other infective (teno)synovitis, right knee (principal) | CPT/HCPCS: 73723 ==

== ENCOUNTER 2024-09-17 11:52 | Outpatient (REF) | payer MEDICARE, OTHER, SELFPAY ==
--- OUTSIDE RECORDS SUMMARY | 2024-09-17 13:06 | XMS_ITS | Clinical Summary ---
Author Organization [facility] Address [address] [place] [address] [address] [place] [address] Care Team Providers Care Train Master Name Role Phone Unavailable Primary Care Provider [...]
--- OUTSIDE RECORDS SUMMARY | 2024-09-17 13:06 | XMS_ITS | Data Portability ---
Author Organization [facility] Internal Medicine, Telehealth Patient Home Address [address] [place] [address] Assessment Encounter Date Assessment Date Assessment LastModified by Organization Details LastModified Time 08/29/2023 08/29/2023 [address] [place] [address] (CHRO) MDM MODERATE MUST MEET 2 OUT OF 3 ELEMENTS: PROBLEMS, DATA OR RISK ELEMENT 1: PROBLEMS ADDRESSED 1 OR MORE CHRONIC ILLNESS WITH EXACERBATION OR 2 OR MORE STABLE CHRONIC ILLNESSES OR 1 UNDIAGNOSED NEW PROBLEM OR 1 ACUTE ILLNESS W/SYMPTOMS OR 1 ACUTE COMPLICATED INJURY ELEMENT 2: DATA MUST MEET 1 OF 3 CATEGORIES CATEGORY 1: REVIEW OF PRIOR EXTERNAL NOTES, REVIEW OF RESULTS, ORDERING OF EACH TEST, ASSESSMENT REQUIRING INDEPENDENT HISTORIAN OR CATEGORY 2: INDEPENDENT INTERPRETATION OF TESTS BY ANOTHER PHYSICIAN OR SPECIALIST OR CATEGORY 3: DISCUSSION OF MGT OR TEST INTERPRETATION W/EXTERNAL PHYSICIAN OR SPECIALIST ELEMENT 3: RISK RISK OF COMPLICATIONS AND/OR MORBIDITY OR MORTALITY OF PATIENT MANAGEMENT PROVIDER MUST THOROUGHLY DOCUMENT EACH ELEMENT THAT IS COVERED Not available 08/29/2023 15:43:37 03/25/2024 03/25/2024 [facility] Not available 02/28 15:50:00 08/21/2024 08/21/2024 [id number] [place] [id number] (CHRO) MDM MODERATE MUST MEET 2 OUT OF 3 ELEMENTS: PROBLEMS, DATA OR RISK ELEMENT 1: PROBLEMS ADDRESSED 1 OR MORE CHRONIC ILLNESS WITH EXACERBATION OR 2 OR MORE STABLE CHRONIC ILLNESSES OR 1 UNDIAGNOSED NEW PROBLEM OR 1 ACUTE ILLNESS W/SYMPTOMS OR 1 ACUTE COMPLICATED INJURY ELEMENT 2: DATA MUST MEET 1 OF 3 CATEGORIES CATEGORY 1: REVIEW OF PRIOR EXTERNAL NOTES, REVIEW OF RESULTS, ORDERING OF EACH TEST, ASSESSMENT REQUIRING INDEPENDENT HISTORIAN OR CATEGORY 2: INDEPENDENT INTERPRETATION OF TESTS BY ANOTHER PHYSICIAN OR SPECIALIST OR CATEGORY 3: DISCUSSION OF MGT OR TEST INTERPRETATION W/EXTERNAL PHYSICIAN OR SPECIALIST ELEMENT 3: RISK RISK OF COMPLICATIONS AND/OR MORBIDITY OR MORTALITY OF PATIENT MANAGEMENT PROVIDER MUST THOROUGHLY DOCUMENT EACH ELEMENT THAT IS COVERED Not available 08/21/2024 15:15:32 09/16/2024 09/16/2024 Patient presente d to office today for their Medicare Annual Wellness Visit. Education was provided on healthy nutrition, including a diet rich in fruits and vegetables, minimizing simple carbohydrates, salt, and saturated fats. Encouraged regular cardiovascular exercise such as walking at least 30 minutes daily, 5 times per week. Emphasized preventive health measures and educated pt on fall prevention and community-based lifestyle interventions to help reduce health risks and promote healthy living. Not available 09/16/2024 16:04:23 Plan of Treatment Reminders Order Date Submit Date Provider Last Modified By Organization Details Last Modified Time Details Appointments None recorded. Lab lipid panel, blood 2024 025 [facility], [address] [place] [address], [id number], 16:17:30 hemoglobin , gastrointe stinal, stool 2024 025 [facility], [address] [place] [address], [id number], 5 16:17:30 CBC w/ auto diff 2024 025 [facility], [address] [place] [address], [address], 5 16:17:30 CMP, serum or plasma 2024 025 [facility], [address] [place] [address], [address], 5 16:17:30 PSA, serum or plasma 2024 025 [facility], [address] [place] [address], [address], 5 16:17:30 CMP, serum or plasma 2023 024 [facility], [address] [place] [address], [address], 18:10:23 CBC 2023 024 [facility], [address] [place] [address], [address], 18:09:25 PSA, serum or plasma 2023 024 [facility], [address] [place] [address], [address], 5 18:09:46 lipid panel, blood 2023 024 [facility], [address] [place] [address], [address], 18:10:04 Referral None recorded. Procedures None recorded. Surgeries None recorded. Imaging MRI, knee, w/o contrast 2024 025 [facility], [address] [place] [address], [place], [address], 08:50:20 XR, chest, 2 view 2024 025 [facility], [address] [place] [address], [place], [address], 16:35:17 Medication Orders azithromyc in 250 mg tablet 2024 025 [facility]2024, [address] [place], [address], 15:31:38 prednisone 10 mg tablet 2024 025 [email or web address] [facility]acy #2024, [address] [place], [address], 5 15:32:46 prednisone 10 mg tablet 2024 025 [email or web address] [facility], [address] [place], [address], 15:32:46 levofloxac in 500 mg tablet 2024 025 [facility], [address] [place], [address], 15:33:24 Patient TargetsNo targets recorded. Patient Instructions Encounter Date Encounter Id Patient Instructions Last Modified By Organization Details Last Modified Time 09/16/2024 [id number] pulse oximetry* Not available 09/16/2024 16:01:44 advance care planning: care instructions Not available 09/16/2024 16:01:44 Discussed and explained advance directives such as standard forms to the . Face to face discussion lasted for a duration of ___ minutes. [email or web address] Not available 09/12/2024 11:17:06 Reason for Referral None Reported. Results Created Date Observation Date Name Description Value Unit Range Abnormal Flag Note LastModifiedBy Organization Detail LastModifiedTime 09/17/1909/16/2024 pulse oxime try* Result 98 Not Available [facility] [address] [facility] [address], [place], [address], 09/12/2024 11:19:01 05/25/19 25 05/24/2024 XR, chest , 2 view No observ ation record ed. [facility] (Medical Records) [address] [place], [address], 05/24/2024 16:34:32 Result Notes None recorded. Problems Name Problem SNOMED Code Status Onset Date Resolution Date Notes Provider Name and Address Organization Details Recorded Time Gout 56063867 Active 2017 Not Available [facility] 3 11:57:12 Allergic rhinitis 26031480 Active 2017 Not Available [facility] 3 11:57:12 Diplopia 14752774 Active 2017 Not Available [facility] 3 11:57:11 Asthma 942503626 Active 2017 Not Available [facility] 3 11:57:11 [facility] l hyperten laura 51192933 Active 2017 Not Available [facility] 3 11:57:12 Insomnia 240313667 Active 2017 Not Available [facility] 3 11:57:11 Low back pain 059462239 Active 2017 Not Available [facility] 3 11:57:11 Neck pain 35417172 Active 2017 Not Available [facility] 3 11:57:12 Osteoart hritis 068576800 Active 2017 Not Available [facility] 3 11:57:11 History of tobacco use 4155822367 103 Active 2017 quit 1981 Not Available [facility] 3 11:57:11 Carpal tunnel syndrome 72763146 Active 2017 Not Available [facility] 3 11:57:12 Viral hepatiti s C 91202990 Active 2017 treated, 2002 Not Available [facility] 3 11:57:12 History of repair of umbilica l hernia 941991569 Active 2017 1994 Not Available [facility] 3 11:57:12 Pancreat itis 00617886 Active 2017 Not Available [facility] 3 11:57:12 History of arthrosc opy of knee joint 235398037 Active 2017 R knee, 1999 Not Available [facility] 3 11:57:12 Eczema 35266315 Active 2017 Not Available [facility] 3 11:57:12 Migraine 70716528 Active 2017 opthalmi c Not Available [facility] 3 11:57:11 Impaired fasting glycemia 089605122 Active 2017 Not Available [facility] 3 11:57:11 Carotid endarter ectomy Completed 201905/22/2019 Travis Alvarenga, [address] [place], [address], [facility] 0 11:20:58 Peripher al vascular disease 037383675 Active 2019 Not Available [facility] 3 11:57:12 Acute bronchit is 28964541 Active 2021 Not Available [facility] 3 11:57:11 Asbestos is 13412127 Active 2021 Not Available [facility] 3 11:57:11 Dyspnea 289327173 Active 2021 Not Available [facility] 3 11:57:11 Tick bite 90486192 Active 2022 Not Available [facility] 3 11:57:12 Benign prostati c hyperpla awais 893179461 Active 2022 Not Available [facility] 3 11:57:11 Cough 28040943 Active 2022 Travis Alvarenga DO [address] [place], [address], [facility] 3 13:35:40 Wheezing 61258223 Active 2023 Travis Alvarenga DO [address] [place], [address], [facility] 4 13:53:14 Pneumoni a 301141991 Active 2024 OZIEL IRBY [address] [place], [address], [facility] 5 14:12:25 Tight chest 10251248 Active 2024 OZIEL IRBY [address] [place], [address], [facility] 5 14:16:22 Acute COVID-19 9241625488 Active 2024 OZIEL IRBY [address] [place], [address], [facility] 5 16:53:21 COVID-19 682506775 Active 2024 Travis Alvarenga, DO [address] [place] [address], [address], [facility] 5 14:03:56 Asthmati c bronchit is 124614806 Active 2024 Travis Alvarenga, DO [address] [place] [address], [address], [facility] 5 15:15:41 Disorder of knee 600663086 Active 2024 Travis Alvarenga, DO [address] [place], [address], [facility] 5 15:20:38 Problem Notes None recorded. Medical Equipment None Reported. Allergies Allergen ID Allergen Name Allergen Category Reaction Reaction Severity Criticality Documentation Date Start Date Code Code System Note Provider Name and Address Organization Details Recorded Time 313 adhesive tape environme nt,medica tion Not available Not available Not available 05/02/2017 [id number] UNK cat ids, plast ic She [facility] 9 14:56:24 Medications Name Sig Start Date Stop Date Status Note LastModified by Organization Details LastModified Time cyclobenz aprine 10 mg tablet Take 1 tablet 3 times a day by oral route for 7 days. 11/14 completed Not Available Not Available Not Available atorvasta tin 40 mg tablet TAKE 1 TABLET BY MOUTH EVERY DAY 09/16 completed Not Available Not Available Not Available clotrimaz ole 10 mg fidel APPLY 1 FIDEL TO MUCOUS MEMBRANE FIVE TIMES DAILY active Not Available Not Available No t Available albuterol sulfate 0.63 mg/3 mL solution for nebulizat ion INHALE 5 ML 3 TIMES A DAY BY INHALATI ON ROUTE NEEDED FOR 30 DAYS. active Not Available Not Available No t Available prednison e 10 mg tablet TAKE 6 TABS X2 DAYS, 5 TABS X2 DAYS,4 TABS X2 DAYS,3 TABS X2 DAYS,2 TABS X2 DAYS, AND 1 TAB X2 DAYS 09/16 completed Not Available Not Available Not Available doxycycli ne hyclate 100 mg capsule TAKE 1 CAPSULE BY MOUTH TWICE A DAY FOR 14 DAYS 12/18 /2023 completed Not Available Not Available Not Available felodipin e ER 2.5 mg tablet,ex tended release 24 hr TAKE 1 TABLET BY MOUTH EVERY DAY active Not Available Not Available No t Available azithromy adi 250 mg tablet TAKE 2 TABLETS BY MOUTH TODAY, THEN TAKE 1 TABLET DAILY FOR 4 DAYS DIRECTED 09/16 completed Not Available Not Available Not Available sumatript an 100 mg tablet TAKE 1 TAB BY MOUTH ONCE AT ONSET OF HEADACHE MAY REPEAT 1 DOSE 2 HRS LATER IF NEEDED 2/DAY active Not Available Not Available No t Available prednison e 20 mg tablet 3 tabs X 3 days, 2 tabs X 3 days, 1 tab X 3 days 11/14 completed Not Available Not Available Not Available ciproflox acin 500 mg tablet TAKE 1 TABLET BY MOUTH EVERY 12 HOURS FOR 10 DAYS 05/24 completed Not Available Not Available Not Available aspirin 81 mg tablet,de layed release TAKE 1 TABLET BY MOUTH EVERY DAY 02/04 completed Not Available Not Available Not Available tramadol 50 mg tablet TAKE 1 TABLET BY MOUTH TWICE A DAY NEEDED active Not Available Not Available No t Available amoxicill in 875 mg tablet TAKE 1 TABLET BY MOUTH TWICE A DAY TILL FINISH 05/24 completed Not Available Not Available Not Available gentamici n 0.3 % eye drops INSTILL 1 DROP INTO both EYEs BY OPHTHALM IC ROUTE EVERY 4 HOURS 12/11 completed Not Available Not Available Not Available tamsulosi n 0.4 mg capsule TAKE 1 CAPSULE BY MOUTH EVERY DAY active Not Available Not Available No t Available doxycycli ne monohydra te 100 mg capsule TAKE 2 CAPSULES BY MOUTH ONCE FOR 1 DOSE. WITH FOOD.USE EXTRA FOR FUTURE TICK BITES PRESCRIB ED 05/24 completed Not Available Not Available Not Available erythromy adi 5 mg/gram (0.5 %) eye ointment APPLY 1/2 INCH IN LEFT EYE FOUR TIMES DAILY FOR 7 DAYS 02/13 completed Not Available Not Available Not Available Advair Diskus 500 mcg-50 mcg/dose powder for inhalatio n INHALE 1 PUFF INTO THE LUNGS TWICE A DAY 09/16 completed change to generic nest refill Not Available Not Available Not Available monteluka st 10 mg tablet TAKE 1 TABLET BY MOUTH EVERY DAY active Not Available Not Available No t Available codeine 10 mg-guaife nesin 100 mg/5 mL oral liquid TAKE 10 ML NEEDED BY ORAL ROUTE AT BEDTIME FOR 7 DAYS. 09/16 completed Not Available Not Available Not Available allopurin ol 300 mg tablet TAKE 1 TABLET BY MOUTH EVERY DAY active Not Available Not Available No t Available levofloxa adi 500 mg tablet TAKE 1 TABLET BY MOUTH EVERY 24 HOURS FOR 10 DAYS 09/16 completed Not Available Not Available Not Available methylpre dnisolone 4 mg tablets in a dose pack TAKE 6 TABLETS ON DAY 1 DIRECTED ON PACKAGE AND DECREASE BY 1 TAB EACH DAY FOR A TOTAL OF 6 DAYS 09/16 completed Not Available Not Available Not Available albuterol sulfate HFA 90 mcg/actua tion aerosol inhaler INHALE 1 TO 2 PUFFS BY MOUTH EVERY 4 TO 6 HOURS NEEDED active Not Available Not Available No t Available celecoxib 100 mg capsule 09/01 completed Not Available Not Available Not Available Pneumovax -23 25 mcg/0.5 mL injection syringe 11/05 completed Not Available Not Available Not Available duloxetin e 30 mg capsule,d elayed release 02/04 completed Not Available Not Available Not Available Symbicort 160 mcg-4.5 mcg/actua tion HFA aerosol inhaler TAKE 1 PUFF BY MOUTH TWICE A DAY active Not Available Not Available No t Available Prevnar 13 (PF) 0.5 mL intramusc ular syringe 05/22 completed Not Available Not Available Not Available Afluria (PF) 45 mcg(15 mcg x 3)/0.5 mL intramusc ular syringe 11/22 completed Not Available Not Available Not Available Shingrix (PF) 50 mcg/0.5 mL intramusc ular suspensio n, kit 05/22 completed Not Available Not Available Not Available Wixela Inhub 250 mcg-50 mcg/dose powder for inhalatio n INHALE 1 PUFF INTO THE LUNGS TWICE A DAY 06/24 completed Not Available Not Available Not Available Wixela Inhub 100 mcg-50 mcg/dose powder for inhalatio n active Not Available Not Available Not Available Fluad 65yr up(PF)45 mcg(15 mcgx3)/0. 5 mL intramusc ular syringe 11/14 completed Not Available Not Available Not Available Fluad Quad [id number] (65yr up)(PF) 60 mcg (15 mcg x 4)/0.5mL IM syringe ADM 0.5ML IM UTD 05/12 completed Not Available Not Available Not Available Hiramgissel Ellipta 200 mcg-62.5 mcg-25 mcg powder for inhalatio n INHALE 1 PUFF INTO THE LUNGS EVERY DAY FOR 30 DAYS active Not Available Not Available No t Available Paxlovid 300 mg (150 mg x 2)-100 mg tablets in a dose pack TAKE 1 DOSE PK BY ORAL ROUTE DIRECTED FOR 5 DAYS. 09/16 completed Not Available Not Available Not Available Vitals Date Recorded Body height Body mass index (BMI) Body weight Heart rate Oxygen saturation Oxygen saturation in Arterial blood by Pulse oximetry Systolic And Diastolic Provider Name and Address Organization Details Last Updated DateTime 5 165.1 cm 30 kg/m2 67773.6 3 g 80 /min 97 % 97 % 140/80 mm[Hg] [facility] 5 15:36:04 Date Recorded Body height Body mass index (BMI) Body weight Heart rate Oxygen saturation Oxygen saturation in Arterial blood by Pulse oximetry Systolic And Diastolic Provider Name and Address Organization Details Last Updated DateTime 5 165.1 cm 30 kg/m2 03423.6 3 g 80 /min 98 % 98 % 140/80 mm[Hg] [facility] 5 14:05:05 Date Recorded Body height Body mass index (BMI) Body weight Heart rate Oxygen saturation Oxygen saturation in Arterial blood by Pulse oximetry Systolic And Diastolic Provider Name and Address Organization Details Last Updated DateTime 5 165.1 cm 30 kg/m2 04292.6 3 g 75 /min 97 % 97 % 150/80 mm[Hg] [facility] 5 14:54:12 Date Recorded Body height Body mass index (BMI) Body weight Heart rate Oxygen saturation Oxygen saturation in Arterial blood by Pulse oximetry Systolic And Diastolic Provider Name and Address Organization Details Last Updated DateTime 4 165.1 cm 30 kg/m2 12650.6 3 g 81 /min 96 % 96 % 130/80 mm[Hg] [facility] 4 15:18:52 Date Recorded Body height Body mass index (BMI) Body weight Oxygen saturation Oxygen saturation in Arterial blood by Pulse oximetry Heart rate Systolic And Diastolic Provider Name and Address Organization Details Last Updated DateTime 5 165.1 cm 30.4 kg/m2 66080.9 7 g 98 % 98 % 70 /min 118/70 mm[Hg] Urmila Varela [facility] 5 15:35:40 Social History Question Answer Notes LastModified by Organizat ion Details LastModified Time Tobacco Smoking Status Former Smoker Not Available [facility] 12/31/2019 03:36:24 What Was The Date Of Your Most Recent Tobacco Screening? 09/16/2024 [email or web address] Information not available 09/16/2024 Sex: Unknown Functional Status Question Answer Note LastModified by Organization D etails LastModified Time Do you or have you ever used any other forms of tobacco or nicotine? No [email or web address] Information not available 07/06/2022 Mental Status None recorded. Family History Nothing Reported. Medical History No medical history recorded. Immunizations Vaccine Type Date Status Note Provider Nam e and Address Organization Details Recorded Time COVID-19, mRNA, LNP-S, PF, 30 mcg/0.3 mL dose 1 completed Not Available [facility] 03/27/2023 13:54:27 zoster recombinant 8 completed Not Available [facility] 03/27/2023 13:54:27 zoster recombinant 8 completed Not Available [facility] 03/27/2023 13:54:27 COVID-19, mRNA, LNP-S, PF, 30 mcg/0.3 mL dose 2 completed Not Available [facility] 03/27/2023 13:54:27 COVID-19, mRNA, LNP-S, PF, 30 mcg/0.3 mL dose 2 completed Not Available [facility] 03/27/2023 13:54:27 COVID-19, mRNA, LNP-S, PF, 30 mcg/0.3 mL dose 2 completed Not Available [facility] 03/27/2023 13:54:27 influenza, unspecified formulation 2 completed Not Available [facility] 03/27/2023 13:54:27 Tdap 1 completed Not Available [facility] 03/27/2023 13:54:27 Respiratory syncytial virus (RSV) vaccine, unspecified 3 completed Not Available [facility] 03/27/2023 13:54:27 Pneumococcal conjugate PCV 13 8 completed Not Available [facility] 03/27/2023 13:54:27 COVID-19, mRNA, LNP-S, PF, 30 mcg/0.3 mL dose 4 completed Quinn campoverde [facility] 12/12/2023 12:20:35 Influenza, split virus, quadrivalent, preservative 9 completed Not Available [facility] 03/27/2023 13:54:27 Influenza, split virus, quadrivalent, preservative 0 completed Not Available [facility] 03/27/2023 13:54:27 COVID-19, mRNA, LNP-S, PF, 30 mcg/0.3 mL dose 1 completed Not Available [facility] 03/27/2023 13:54:27 Influenza, split virus, quadrivalent, preservative 8 completed Not Available [facility] 03/27/2023 13:54:27 Past Encounters Encounter ID Performer Location Encounter Start Date Encounter Closed Date Diagnosis/Indication Diagnosis SNOMED-CT Code Diagnosis ICD10 Code Diagnosis Note [id number] Travis Alvarenga [facility] [address] [facility],[place] [address] 07/10/2017 14:59:12 07/10/2017 17:14:06 Asthma 645013805 J45.909 doing ok no major issues Impaired f asting glycemia 625154616 R73.01 recc another a1c next lab Essential hypertension 14286563 I10 stable and without major issues Diabetes mellitus 998517 09 E11.9 Tick bite 91186567 S00.9 6XD [id number] Travis Alvarenga [facility] [address] [facility] [place] [address] 11/22/2017 16:21:33 11/24/2017 09:11:45 Impaired fasting glycemia 628361881 R73.01 recc another a1c next lab Essential hypertension 46262709 I10 stable and without major issues Asthma 255371749 J45.90 9 doing ok no major issues [id number] Travis Alvarenga [facility] [address] [facility] [address] [address] 12/08/2017 11:23:46 12/08/2017 14:36:03 Cough 90480521 R05 Acute bronchitis 9133721 2 J20.9 [id number] Travis Alvarenga [facility] [address] [facility] [address] [address] 05/22/2018 16:20:24 05/23/2018 14:53:46 Impaired fasting glycemia 721135133 R73.01 a1c was 5.2 and is doing great Essential hypertension 62476037 I10 stable and without major issues Asthma 145911365 J45.90 9 doing ok no major issues since last exacerbat last falll feels the immunology treat is helping [id number] Travis Alvarenga [facility] [address] [facility],[place] [address] 06/19/2018 10:41:39 06/19/2018 11:03:36 Asthma 218986723 J45.909 Acute exac erbation of asthma 399390364 J45.901 Essential hypertension 25066186 I10 stable Impaired f asting glycemia 743332433 R73.01 A1C 5.3 [id number] Travis Alvarenga [facility] [address] [facility] [address] [address] 11/14/2018 16:22:52 11/16/2018 10:36:17 Asthma 114051335 J45.909 doing ok no major issues since last exacerbat last falll feels the immunology treat is helping Essential hypertension 57186391 I10 stable and without major issues cont current med Acute conjunctivitis 537 44950 H10.32 sent rx for gentamicin Impaired f asting glycemia 940066278 R73.01 a1c was 5.1 and is doing great!!! rechk in 6 mo [id number] Travis Alvarenga [facility] [address] [facility],[place] [address] 11/19/2018 16:14:57 11/19/2018 16:36:46 Asthma 277736002 J45.909 Essential hypertension 54405194 I10 stable Allergic rhinitis 508489 04 J30.9 allergy shots otc treatment singulair Acute asthma 588540718 J 45.901 [id number] Travis Alvarenga [facility] [address] [facility],[place] [address] 12/11/2018 14:52:00 12/11/2018 15:12:58 Diabetes mellitus 07265020 E11.9 Tick bite without infection 338176334 T14.8XXA Easy bruising 018227131 R58 seems likely that pred had predispose d him, but will get some labs Asthma 377137984 J45.90 9 resolved [id number] Travis Alvarenga [facility] [address] [facility],[place] [address] 05/22/2019 10:50:52 05/22/2019 11:26:28 Asthma 512708159 J45.909 as noted prior appts he is doing ok no major issues since last exacerbat last falll feels the rope walker' s immunology treatment is helping Impaired f asting glycemia 325051408 R73.01 lab work is excellent no issures with sugar kidney liver electrolyt es all nl Essential hypertension 26681948 I10 stable and without major issues cont current med felodipine note that this is causing a little bit of ankle edema will monitor Allergic rhinitis 285570 [address] garvey [id number] Travis Alvarenga [facility] [address] [facility] [place] [address] 11/06/2019 14:56:17 11/06/2019 15:29:19 Impaired fasting glycemia [id number] R73.01 lab work is excellent no issures with sugar kidney liver electrolyt es all nl Essential hypertension 90403811 I10 stable and without major issues cont current med felodipine note that this is causing a little bit of ankle edema will monitor Asthma 043798755 J45.90 9 as noted prior appts he is doing ok no major issues since last exacerbat last falll feels the rope walker' s immunology treatment is helping [id number] Travis Alvarenga [facility] [address] [facility], [place] [address] 05/12/2020 15:21:20 05/12/2020 15:48:21 Asthma 346550063 J45.909 as noted prior appts he is doing ok no major issues since last exacerbat last falll feels the rope walker' s immunology treatment is helping Impaired f asting glycemia 124353855 R73.01 lab work is excellent no issures with sugar kidney liver electrolyt es all nl Essential hypertension 54610354 I10 stable and without major issues cont current med felodipine note that this is causing a little bit of ankle edema will monitor Neck pain 13650487 M54.2 given progressio n and worsening pain we will get cerv xr and given the radicular aspect of the pain pattern we will need and an MRI we will wait for mxaine to call with update [id number] Travis Alvarenga [facility] [address] [facility],[place] [address] 06/23/2020 09:25:24 06/23/2020 11:52:14 Degenerative cervical spinal stenosis 075730539 M48.02 Will start with follow up with rheum for consult Degenerati on of cervical intervertebral disc 49244854 M50.30 If needed or warranted with send in referral to Dr. Ocasio [id number] Travis Alvarenga [facility] Medicine [address] [facility] [place] [address] 11/17/2020 08:30:06 11/17/2020 16:22:45 Diabetes mellitus [id number] E11.9 still having an issue with elevated glyuc Asthma 261215231 J45.90 9 as noted prior appts he is doing ok no major issues since last exacerbat last falll feels the rope walker' s immunology treatment is helping Eczema 52107481 L30.9 stable and doing good Essential hypertension 23576045 I10 stable and without major issues cont current med felodipine note that this is causing a little bit of ankle edema will monitor Impaired f asting glycemia 520040044 R73.01 lab work is excellent no issures with sugar kidney liver electrolyt es all nl Peripheral vascular disease 566502877 I73.9 [id number] Travis Alvarenga [facility] Internal [facility] [address] [facility] [address],[place] [address] 05/17/2021 13:49:49 05/19/2021 10:58:44 Chronic cough 50393074 R05.3 will start with fu with CXr and start on steriod [id number] Travis Alvarenga [facility] [address] [facility] [address],[place] [address] 09/01/2021 09:38:52 09/01/2021 10:06:38 Asthma 098401986 J45.31 will start on pred taper and z debra which is effective for patient with his acute exacerbati on Acute bronchitis 1253015 2 J20.8 cough syrup PRN for cough at night Asbestosis 83215171 J[address] Garvey; monitoring every year with a repeat CT scan [id number] Travis Alvarenga [facility] [address] [facility],[place] [place] [address] 02/04/2022 13:52:05 02/04/2022 14:57:45 Asthma 511546951 J45.31 as noted prior appts he is doing ok no major issues since last exacerbat was two years ago feels the rope walker' s immunology treatment is helping a lot also doing voice therapy for his singing spirometry eval is wnl no evid of reactive airway at present see above Essential hypertension 68991788 I10 stable and without major issues cont current med felodipine note that this is causing a little bit of ankle edema will monitor Impaired f asting glycemia 010342688 R73.01 lab work is excellent no issures with sugar kidney liver electrolyt es all nl a1c is 5.1 Peripheral vascular disease 876134338 I73.9 stable and not having any symptomshe understand s the need to continue his cholestero l and this was discussed Abdominal aortic aneurysm screening 859602702 Z13.6 stabl e Advance care planning 71 3550136 Z71.89 all set Screening for malignant neoplasm of colon 834556178 Z12.11 will order will be due Active or passive immunization 578002983 Z23 patient advised he is due for flu shot, tdap & pneu 23 Osteoarthritis 011253244 M19.90 [place] prn [id number] Travis Alvarenga [facility] [address] [facility],[place] [address] 07/06/2022 13:21:24 07/06/2022 14:57:49 Tick bite 70710600 S00.96XD feeling better on day 5 of doxy will chk babesiosis and anaplasm in blood as well Essential hypertension 79711722 I10 stable and without major issues cont current med felodipine note that this is causing a little bit of ankle edema will monitor Asthma 635703594 J45.31 overall is bettter with allergy shots: as noted prior appts he is doing ok no major issues since last exacerbat was two years ago feels the rope walker' s immunology treatment is helping a lot also doing voice therapy for his singing spirometry eval is wnl no evid of reactive airway at present see above Impaired f asting glycemia 972349851 R73.01 lab work is excellent no issures with sugar kidney liver electrolyt es all nl a1c is now 5.4, 5.1 Asbestosis 30560201 J61 will need followup cxr next year Peripheral vascular disease 816525099 I73.9 stable and not having any symptomshe understand s the need to continue his cholestero l and this was discussed Benign pro static hyperplasia 893697735 N40.1 [id number] Travis Alvarenga [facility] [address] [facility],[place] [address] 01/17/2023 13:27:03 01/17/2023 14:00:44 Essential hypertension 41857857 I10 stable and without major issues cont current med felodipine note that this is causing a little bit of ankle edema will monitor Impaired f asting glycemia 746276003 R73.01 lab work is excellent with a1c 4.8 no issures with sugar kidney liver electrolyt es all nl a1c is prior 5.4, 5.1 Peripheral vascular disease 078938036 I73.9 stable and not having any symptomshe understand s the need to continue his cholestero l and this was discussed Dyspnea 442704167 R06.00 Cough 19039160 R05.9 [id number] Travis Alvarenga [facility] [address] [facility] [address],[place] [address] 03/27/2023 09:17:52 03/27/2023 11:17:33 Asthma 490672435 J45.31 he is still coughing with some wheeze but overall feels much better than he has he is on day 5 of a pred taper and will wait this out in the future we will need to remember to start at 60mg taper and not 40mg Peripheral vascular disease 388459830 I73.9 stable and not having any symptomshe understand s the need to continue his cholestero l and this was discussed Asbestosis 30508044 J61 CXR IS NEGATIVE [id number] Travis Alvarenga [facility] [address] [facility] [place] [address] 08/29/2023 15:08:48 08/30/2023 08:14:10 Depression screening 953394016 Z13.31 neg Essential hypertension 91273073 I10 stable and without major issues cont current med felodipine note that this is causing a little bit of ankle edema will monitor Impaired f asting glycemia 565377492 R73.01 lab work is excellent with a1c 5.2, 4.8 no issures with sugar kidney liver electrolyt es all nl a1c is prior 5.4, 5.1 Neck pain 84197792 M54.2 given progressio n and worsening pain we will get cerv xr and given the radicular aspect of the pain pattern we will need and an MRI we will wait for maxine to call with update Wheezing 51821668 R06.2 [id number] Travis Alvarenga [facility] [address] [facility] [address],[place] [facility] [address] 03/25/2024 15:16:43 03/25/2024 15:56:03 Asthma 653458475 J45.31 he is still coughing with some wheeze but overall feels much better than he has he is on day 5 of a pred taper and will wait this out in the future we will need to remember to start at 60mg taper and not 40mg Essential hypertension 83591784 I10 stable and without major issues cont current med felodipine note that this is causing a little bit of ankle edema will monitor Benign pro static hyperplasia 537373271 N40.1 psa [id number] Travis Alvarenga [facility] [address] [facility] [address],[place] [address] 05/24/2024 13:54:17 05/24/2024 16:35:17 Pneumonia 565915246 J17 [facility] set up [facility] CXRstart on abx and steroid combo Tight chest 52333878 R07 .89 probable pneumonia [id number] Travis Alvarenga [facility] [address] [facility] [address],[place] [address] 08/21/2024 14:43:11 08/21/2024 16:00:01 Asthmatic bronchitis 387919503 J45.909 in the future we will need to remember to start at 60mg taper and not 40mg Disorder of knee 6513349 07 M89.9 [id number] Travis Alvarenga [facility] [address] [facility] [address],[place] [address] 09/16/2024 15:27:06 09/16/2024 16:23:36 Screening for cardiovascular system disease 990218455 Z13.6 will chk lab Screening for malignant neoplasm of colon 998677767 Z12.11 will order will be due Depression screening 171 150885 Z13.31 neg Asthma 703439746 J45.31 he is still coughing with some wheeze but overall feels much better than he has he is on day 5 of a pred taper and will wait this out in the future we will need to remember to start at 60mg taper and not 40mg Essential hypertension 95561792 I10 stable and without major issues cont current med felodipine note that this is causing a little bit of ankle edema will monitor Well adult 976572853 Z00 .00 has been stable and doing ok overallrel ates is very active despite the asthma being an occ problem Health Concerns Section Related Observation LastModified by Organization Detai ls LastModified Time None Recorded Concern Status LastModified by Organization Details LastModified Time None Recorded Advance Directives Directive None Recorded Payers Insurance Date Sequence Insurance Name Policy Number Policy Siddiqui Covered Member ID Siddiqui Member ID Guarantor Name 06/21/2024 2 [facility] [id number] Jyothi Prado [id number] Maxine Prado 09/13/2024 1 [place]IC[place] [employer] Maxine Prado [id number] Maxine Prado 09/13/2024 2 [facility] INDNITY PLAN - [facility] [id number] Maxine Prado [id number] Maxine Prado Notes Date Note Type Note Provider Name and Address Organization Details Recorded Time 4 text/htm l here for rechk and relates that his arms are always bruised Travis Alvarenga DO [address] [place], [address], [facility] 08/29/2023 15:49:01 5 text/htm l here for rechk no major issue using the advair daily but occ having some breakthroughocc cough doing ok overalllab reviewed Travis Alvarenga DO [address] [place], [address], [facility] 03/25/2024 15:52:30 5 text/htm l c/o lung problems the patient reports starting yesterday when he was throwing the ball for his dog he developed burning sensation, around central chest areathe patient reports that he is has tight lungs and wheezing reports it as chest pain, with no left arm or jaw paindenies sweatingno syncope, no blurred vision, vision changes, headaches the patient is fine when he is at rest, and with walkinggets worse with exertion, develops sob, breathing difficultiesresolved we he stops movinghas sig wheezing and diminished breath sounds thought we tachycardia after breathing for exam probable pneumonia given symptomsno cardiac findingsno crushing chest pain no sig elevation in BP no pain when I was listening to his lungs, heart rate picked up after having him take deep breaths no gastric symptomsnormal heart rhythmno new murmurs OZIEL IRBY [address] [place], [address], [facility] 05/24/2024 14:21:47 5 text/htm l here for rechk hurt his right knee and when to urgent care no injury and was eval and had xr and placed on a immobilizer xr showed deg changesalso has an appt with rheum appt in september 02taking ibuprofen and tylenol Travis FaithAngie Alvarenga, DO [address] [facility], [place], [address], [facility] 08/21/2024 15:25:16 5 text/htm l Care Management - AsthmaReported bypatient.Severity:impro ving; does not interfere with daily activities; does not disturb sleep; does not cause nighttime awakening Associated Symptoms:no fever; no fatigue; no irritability; no cough; normal appetite; no change in productivityCare Management - HypertensionReported bypatient.Self Care:not under emotional stress Severity:symptoms are improving; does not interfere with daily activities Associated Symptoms:no dizziness; no lightheadedness; no chest pain; no shortness of breath; no palpitations; no edema; no calf muscle cramps; no blurred vision; no confusion; no headaches; no fatigueMedicare Annual Wellness VisitReported bypatient.Diet and Nutrition:healthy diet Fracture Risk:no history of fractures; no recent explained fracture; no sudden unexplained fractures; no previous musculoskeletal injuries Physical Activity:exercises on a regular basis; recent increase in physical activity; good physical condition Depression Risk:never feels sad, empty, or tearful; no loss of interest in activities; no significant changes in weight; no sleep disturbances or insomnia; no agitation; no loss of energy; no feelings of worthlessness or guilt; no thoughts of suicide; no history of depression; no history of mood disorders Orientation:no disorientation to time; no disorientation to date; no disorientation to place Concentration and Memory:no decreased concentrating ability; no memory lapses or loss; does not forget words Speech/Motor difficulties:no speech difficulties; no difficulty expressing formulated concepts; no difficulty with fine manipulative tasks; no difficulty writing/copying; no slowed reaction time; does not knock things over when trying to pick them up Hearing:no loss of hearing Vision:no vision problems Activities of Daily Living:able to bathe with limited or no assistance; able to contol urination and bowels; able to dress with limited or no assistance; able to feed self with limited or no assistance; able to get out of chair or bed with limited or no assistance; able to groom with limited or no assistance; able to toilet with limited or no assistance Instrumental Activities of Daily Living:able to do house work with limited or no assistance; able to grocery shop with limited or no assistance; able to manage medications with limited or no assistance; able to manage money with limited or no assistance; able to prepare meals with limited or no assistance; able to use the phone with limited or no assistance Falls Risk Assessment:no frequent falls while walking; no fall in the past year; no fall since last visit; no dizziness/vertigo Home Safety:no unsafe jovana hazzards; no unsafe stairs; no unsafe gas appliances; working smoke/CO detectors; wears protective head gear for biking/high velocity; use of seatbelts; practicing 'safer sex'; no vision or hearing loss while driving; no fire arms; has hand bars in the bathroom/shower; good lighting in the home patient here for usual followup exam. Has no issues or major problems. No side effects with medication or issue with pharmacy. waiting for knee mri results Travis Alvarenga, DO [address] [facility], [place], [address], [facility] 09/16/2024 16:05:51
--- OUTSIDE RECORDS SUMMARY | 2024-09-17 13:06 | XMS_ITS | Clinical Summary ---
Author Organization [facility] Address [address] [place] [address] Phone Care Team Providers Care Cisco Network Engineer Name Role Phone Travis Alvarenga DO Unavailable Bill Perkins MD Unavailable [email or web address] Travis Alvarenga DO Primary Care Provider [phone] Allergies Active Allergy Reactions Criticality Noted Date [...] office & in 6 mths- orders in [facility]. Assessment & Plan (03/06/2024 1:26 PM EST): Continue as prescribed. Monitor for abd. Pain, nausea, skin rashes, unusual fatigue etc. Get monitoring labs on the way out of the office & in 6 mths- orders in [facility]. Primary osteoarthritis involving multiple joints 03/27/2023 Assessment [...] MCP joint we have treated with enlarged contract admin and tools and utensils, continued use of [...] 50% of 30-minute visit was spent in [id number] conversation discussing the natural history and treatment of his condition, going over necessary lab work and medications and coordinating my care with out of his primary care physician. 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); Primary osteoarthritis involving multiple joints; On allopurinol therapy; Overweight (BMI 25.0-29.9) 08/19/2024 3:35 PM EDT Hospital Encounter [facility] [address] [place] [address] Jennifer Jean PA-C 08/19/2024 3:20 PM EDT Office Visit [facility] at [address] [address] [place], DAY [facility] DIRECTOR Jennifer Jean PA-C Strain of right knee, initial encounter (Primary Dx) from Last 3 Months Immunizations Immunization Administration Dates Next Due COVID-19 (Pre-12/19) BoardEvals Vaccine, [id number], PF 05/18/2020 COVID-19 (Pre-12/19) angelcam Vaccine, mRNA, PF 12/07/2021,06/22/2021 COVID-19 (Pre-12/19) angelcam Vaccine, mRNA, barb-sucrose, PF 06/22/2021 Influenza High-Dose [...] Description 03/03/2025 3:00 PM EST Office Visit [facility] Rheumatology [address] [place] [address] Sara Casey MD [address] [facility], [address] [place] [address] Health Maintenance Due Date Last Done Comments [...] EDT) SODIUM 137 133 - 146 mmol/L [facility] POTASSIUM 4.6 3.3 - 5.1 mmol/L [facility] CHLORIDE 100 96 - 108 mmol/L [facility] CO2 27 21 - 35 mmol/L [facility] BUN 16 6 - 19 mg/dL [facility] CREATININE 0.70 0.5 - 1.5 mg/dL [facility] GLUCOSE 122(H) 70 - 99 mg/dL [facility] ALBUMIN 4.0 3.9 - 4.8 g/dL [facility] TOTAL PROTEIN 6.9 6.5 - 8.0 g/dL [facility] CALCIUM 9.3 8.4 - 10.3 mg/dL [facility] ALKALINE PHOSPHATASE 79 39 - 117 U/L [facility] TOTAL BILIRUBIN 0.6 0.0 - 1.2 mg/dL [facility] AST 21 0 - 37 U/L [facility] ALT 14 0 - 40 U/L [facility] GLOBULIN 2.9 1 - 4.8 g/dL [facility] EGFR 99 >59 mL/min/1.7 3m2 [facility] Comment:Estimated glomerular filtration rate calculated using the CKD-EPI refit equation. ANION GAP 15 10 - 20 mmol/L [facility] Blood 09/02/2024 3:04 PM EDT 09/02/2024 3:06 PM EDT us Sara Casey MD LAB BLOOD ORDERABLES Fin al Result [address] [address] * Sedimentation rate (ESR) (09/02/2024 3:04 PM EDT) ESR 10 0 - 20 mm/h [facility] Blood 09/02/2024 3:04 PM EDT 09/02/2024 3:06 PM EDT us Sara Casey MD LAB BLOOD ORDERABLES Fin al Result [facility] [address] [place] [address] * (ABNORMAL) CBC and differential (09/02/2024 3:04 PM EDT) WBC 7.31 4.00 - 11.00 K/uL [facility] RBC 4.09(L) 4.50 - 5.90 M/uL [facility] HGB 13.9 13.5 - 17.5 g/dL [facility] HCT 41.3 41.0 - 53.0 % [facility] PLT 209 150 - 450 K/uL [facility] MCV 101.0(H) 80.0 - 100.0 fL [facility] MCH 34.0(H) 27.0 - 31.0 pg [facility] MCHC 33.7 32.0 - 36.0 g/dL [facility] RDW 13.5 11.5 - 14.5 % [facility] MPV 11.0 8.4 - 12.0 fL [facility] NRBC 0.00 0.00 /100 WBCs [facility] ABSOLUTE NRBC 0.00 0.00 K/uL [facility] DIFF METHOD Auto [facility] NEUTS 79.2(H) 48.0 - 76.0 % [facility] LYMPHS 13.4(L) 18.0 - 41.0 % [facility] MONOS 6.4 4.0 - 11.0 % [facility] EOS 0.3 0.0 - 5.0 % [facility] BASOS 0.3 0.0 - 1.5 % [facility] Granulocytes, immature (%) 0.4 0.0 - 0.9 % [facility] ABSOLUTE NEUTS 5.79 1.92 - 7.60 K/uL [facility] ABSOLUTE LYMPHS 0.98 0.72 - 4.10 K/uL [facility] ABSOLUTE MONOS 0.47 0.16 - 1.10 K/uL [facility] ABSOLUTE EOS 0.02 0.00 - 0.50 K/uL [facility] ABSOLUTE BASOS 0.02 0.00 - 0.15 K/uL [facility] Granulocytes, immature 0.03 0.00 - 0.09 K/uL [facility] Blood 09/02/2024 3:04 PM EDT 09/02/2024 3:06 PM EDT us Sara Casey MD LAB BLOOD ORDERABLES Fin al Result Performing Organization Address City/[facility]/ZIP Co de Phone Number [address] [address] * C-Reactive Protein (09/02/2024 3:04 PM EDT) C REACTIVE PROTEIN <3.0 0.0 - 4.0 mg/L [facility] Blood 09/02/2024 3:04 PM EDT 09/02/2024 3:06 PM EDT Sara Casey MD LAB BLOOD ORDERABLES Fin al Result Performing Organization Address [facility] Co de Phone Number [address] [address] * Uric acid (09/02/2024 3:04 PM EDT) URIC ACID 3.2 2.4 - 7.0 mg/dL [facility] Blood 09/02/2024 3:04 PM EDT 09/02/2024 3:06 PM EDT Sara Casey MD LAB BLOOD ORDERABLES Fin al Result Performing Organization Address [facility] Co de Phone Number [address] [address] * XR KNEE 4 OR MORE VIEWS [...] clinician's provided indication for this examination in [facility]: Pain COMPARISON: None. Procedure Note Gordon Darden MD - 08/19/2024 XR KNEE 4 OR MORE VIEWS (RIGHT) Referring clinician's provided indication for this examination in [facility]:Pain COMPARISON: None. IMPRESSION: No acute fracture [...] (03/21/2024 9:30 AM EST) HDL 64 mg/dL [facility] Comment: Interpretation <40 mg/dL: Low HDL cholesterol (major risk factor for CHD) Greater than or equal to 60 mg/dL: High HDL cholesterol ( negative risk factor for CHD) HDL - cholesterol is affected by a number of factors, e.g. smoking, excerise, hormones, sex and age. CHOLESTEROL 213 0 - 240 mg/dL [facility] TRIGLYCERIDES 164(H) 30 - 160 mg/dL [facility] LDL 116 50 - 129 mg/dL [facility] Comment: LDL levels in terms of risk for coronary heart disease: <100 mg/dL: Optimal 100-129 mg/dL: Near or above optimal 130-159 mg/dL: Borderline high 160-189 mg/dL: High >190 mg/dL: Very High CARDIAC RISK RATIO 3.3(L) 3.4 - 5.0 [facility] Blood 03/21/2024 9:30 AM EST 03/21/2024 9:34 AM EST us Travis Alvarenga DO LAB BLOOD ORDERABLES Final Resul t [address] [address] from Last 3 Months or Most Recently Relevant to Health Maintenance Insurance MEDICARE PART A & B Member Subscriber Plan / Payer (Ef fective 2017-Present) Name:Nicolas Smiley Member ID:[id number] Relation to Subscriber:Self Name:Nicolas Smiley Subscriber ID:[id number] Payer ID:[id number] Group ID:Not on file Type:Medicare Address: [facility] [employer] [facility] [place] [address] [facility] EXTENSION MEDICARE SUPPLEMENT MEDICARE PART A & B [employer] MEDICARE SUPPLEMENT MEDICARE PART A & B [employer] MEDICARE SUPPLEMENT MEDICARE PART A & B [facility] EXTENSION MEDICARE SUPPLEMENT MEDICARE PART A & B [employer] MEDICARE SUPPLEMENT MEDICARE PART A & B [employer] MEDICARE SUPPLEMENT MEDICARE PART A & B [facility] EXTENSION MEDICARE SUPPLEMENT MEDICARE PART A & B [employer] EXTENSION MEDICARE SUPPLEMENT MEDICARE PART A & [email or web address]IC[facility] SUPPLEMENT Care Teams Cisco Network Engineer Relationship Specialty Start Date End Date Brandietyra Travis CuevasDO [email or web address] PCP - General Internal Medicine 01/11/17 Travis Alvarenga DO [email or web address] Historical LMR Provider 12/13/16 Bill Perkins MD [email or web address] Historical LMR Provider 12/13/16 Additional Source Comments The information contained in this document represents components of the legal health record. It is not the complete legal health record.[facility]
[2024-09-17 13:08] LABS: MANUAL DIFF FLAG NO
[2024-09-17 13:47] LABS: Hematocrit 37.8 % (42.0-52.0); Hemoglobin 13.1 g/dl (14.0-18.0); Imm Gran Abs Auto 0.01 X10*3/uL (0.00-0.03); Imm Gran Pct Auto 0.2 % (0.0-0.4); Lymphocytes Absolute Auto 1.3 X10*3/uL (1.2-4.9); Mean Corpuscular HGB Conc 34.7 g/dl (31.0-36.0); Mean Corpuscular Hemoglobin 34.2 pg (27.0-33.0); Mean Corpuscular Volume 98.7 fL (80.0-98.0); NRBC Abs Auto 0.000 X10*3/uL (0.0-0.012); NRBC Pct Auto 0.0 /100WBC (0.0-0.2); Platelet Count 222 X10*3/uL (160-400); Red Blood Count 3.83 X10*6/uL (4.60-5.80); White Blood Count 4.1 X10*3/uL (4.8-10.8)
[2024-09-17 14:04] LABS: Alanine Aminotransferase 19 U/L (0-40); Albumin Level 4.0 g/dL (3.5-5.0); Alkaline Phosphatase 72 U/L (39-117); Anion Gap 11 (12-20); Aspartate Amino Transferase 26 U/L (5-37); Blood Urea Nitrogen 9 mg/dL (9-16); Calcium 8.6 mg/dL (8.4-10.2); Carbon Dioxide 27 mmol/L (22-29); Chloride 107 mmol/L (96-108); Cholesterol 216 mg/dL (<200); Estimated Glomerular Filt Rate > 60; HDL Cholesterol 61 mg/dL (>40); Potassium 4.0 mmol/L (3.3-5.1); Sodium 141 mmol/L (135-145); Total Protein 6.7 g/dL (6.5-8.0); Triglycerides 91 mg/dL (<150)
[2024-09-17 14:37] LABS: Prostate Specific Antigen 0.42 ng/mL (<0.05-4.0)
== END 2024-09-17 11:53 | disposition home or self-care (01) ==
LOC: HO.MANLDS 11:52
PROVIDERS: Visit Provider Internal Medicine
DX: Z00.00 Encounter for general adult medical examination without abnormal findings (principal); Z12.5 Encounter for screening for malignant neoplasm of prostate; Z13.6 Encounter for screening for cardiovascular disorders
CPT/HCPCS: 36415; 80053; 80061; 84153; 85025

== ENCOUNTER 2024-09-21 13:01 | Outpatient (REF) | payer MEDICARE, OTHER, SELFPAY ==
[2024-09-26 13:06] LABS: FIT Date 1 07/25/25; FIT Date 2 07/26/25; FIT Int Ctl YES; FIT Lot M01342; FIT1 NEGATIVE (NEGATIVE); FIT2 NEGATIVE (NEGATIVE)
--- OUTSIDE RECORDS SUMMARY | 2024-09-26 13:13 | XMS_ITS | Clinical Summary ---
Author Organization [facility] Address [address] [place] [address] [address] [place] [address] Care Team Providers Care Hi Lift Operator Name Role Phone Unavailable Primary Care Provider [...]
--- OUTSIDE RECORDS SUMMARY | 2024-09-26 13:30 | XMS_ITS | Encounter Summary ---
Author Organization [facility] Address [address] [facility] [address] [place] [address] Phone Care Team Providers Care Insurance Loss Adjuster Name Role Phone Brandietyra Travis Cuevas DO Unavailable Bill Perkins MD Unavailable [email or web address] Travis Alvarenga DO Primary Care Provider [phone] Reason for Visit * Reason Comments Knee Pain Patient is being see n for meniscus of right knee. Encounter Details Date Type Department Care Team (Late st Contact Info) Description 09/26/2024 1:30 PM EDT Office Visit [facility] Orthopedics & Sports Medicine [address] [place] [phone] Shmuel Mcdaniel MD [address] [place] [address] Orthopedics & Sports Medicine, [facility]. [place], [place] [id number] [email or web address] Arrived Social History Tobacco Use Types Packs/Day Years Used Date Smoking Tobacco: Former Cigarettes Q uit: 1980 Smokeless Tobacco: Never Alcohol Use Standard Drinks/Week Comments Not Currently [...] on file Sexual Orientation Not on file documented as of this encounter Last Filed Vital Signs Vital Sign Reading Time Taken Comments Blood Pressure - - Pulse - - Temperature - - Respiratory Rate - - Oxygen Saturation - - Inhaled Oxygen Concentration - - Weight 83 kg (182 lb 15.7 oz) 09/26/2024 1:09 PM EDT Height - - Body Mass Index 27.83 09/02/2024 2:22 PM EDT documented in this encounter Plan of Treatment Upcoming Encounters Date Type Department Care Team (Late st Contact Info) Description 03/03/2025 3:00 PM EST Office Visit [facility] Rheumatology [address] [place] [address] Sara Casey MD [address] [facility], [address] [place] [address] [email or web address] documented as of this encounter Visit Diagnoses Not on filedocumented in this encounter Care Teams Insurance Loss Adjuster Relationship Specialty Start Date End Date Travis Alvarenga DO PCP - General Internal Medicine 01/11/17 Travis Alvarenga DO Historical LMR Provider 12/13/16 Bill Perkins MD [email or web address] Historical LMR Provider 12/13/16 documented as of this encounter Additional Source Comments The information contained in this document represents components of the legal health record. It is not the complete legal health record.[facility]
== END 2024-09-21 13:02 | disposition home or self-care (01) ==
LOC: HO.MANLNP 13:01
PROVIDERS: Visit Provider Internal Medicine
DX: Z00.00 Encounter for general adult medical examination without abnormal findings (principal); Z13.6 Encounter for screening for cardiovascular disorders; Z12.11 Encounter for screening for malignant neoplasm of colon
CPT/HCPCS: 82274